=== PATIENT | male | born 1940 | race Caucasian/White ===

== ENCOUNTER 2019-05-19 10:19 | Outpatient (CLI) | payer MEDICARE, SELFPAY ==
--- NOTE | 2019-05-19 10:40 | XR_ITS ---
WS: [id number] Right foot, 3 views, 05/19/2019 Clinical Data: ulceration Comparison: None. Findings: No fractures or dislocations are seen. There is lateral subluxation of the second through fourth phal anges. Osteoarthritic change between the first cuneiform and base of the right first metatarsal is se en. There is a small Achilles spur and a large plantar spur. There are clips in the medial soft tissu e of the ankle from surgery.No periarticular demineralization or calcifications are seen. There is no evidence of osteomyelitis. XR/XR foot RT min 3V* [id number] Impression: 1. Lateral subluxation of the second through fourth toes. 2. Osteoarthritic change at the articulation between the base of the right firs t metatarsal and the first cuneiform.
== END 2019-05-19 10:20 | disposition home or self-care (01) ==
LOC: RAD 10:30
PROVIDERS: Family Provider Family Medicine; PCP Family Medicine; Visit Provider Podiatrist Foot & Ankle Surgery
DX: L97.512 Non-pressure chronic ulcer of other part of right foot with fat layer exposed (principal); M19.071 Primary osteoarthritis, right ankle and foot
CPT/HCPCS: 73630

== ENCOUNTER 2019-07-14 08:23 | Outpatient (CLI) | payer MEDICARE, SELFPAY ==
--- NOTE | 2019-07-14 08:45 | USCV_ITS ---
Taras Gonzalez Age: 78 Gender: M : 1940 Exam Date: 07/14/2019 08:51 Ordering Phys: Heber Salinas MD ([email or web address]) Technologist: DOUG PLATT Exam Location[place] [facility] [place] Indication: LEG PAIN Risk Factors: Previous Vascular Surgery: RIGHT LEFT BP: 157.0 / 91.00 BP: 150.0/ 78.00 0 0 Waveform Velocity (cm/s) Velocity (cm/s) Waveform Biphasic 72.9 Iliac Prox 93.1 Triphasic Biphasic 66.1 Iliac Mid 53.6 Triphasic Biphasic 65.3 Iliac Distal 67.3 Triphasic Biphasic 65.3 STEM SETTER 36.4 Triphasic Biphasic 43.3 SFA Prox 57.3 Triphasic Biphasic 48.5 SFA Mid 46.3 Monophasic Biphasic SFA Dist Monophasic 66.2 35.0 Biphasic 98.1 POP 17.9 Monophasic Monophasic 27.6 RADIOLOGY TRANSCRIPTIONIST N/A Monophasic 50.7 DPA 34.2 Monophasic 0.6 FREDY 0.5 FINDINGS RT DPA = 95 RT RADIOLOGY TRANSCRIPTIONIST 80 LT DPA = 80, LT RADIOLOGY TRANSCRIPTIONIST N/A Abnormal resting FREDY of 0.6 on the right side and 0.5 on the left side Mild to moderate diffuse plaques in the iliac and femoral arteries bilaterally CONCLUSIONS 1. Abnormal resting FREDY and Doppler waveforms consistent with severe peripheral arterial disease on the left side, possibly multisegmental with total occlusion of the posterior tibial artery . 2. Moderately severe peripheral artery disease on the right side possibly involving the popliteal and infrapopliteal vessels. No similar previous studies are available for comparison Dr Miley Siu MD [facility] (Electronically Signed) Final Date: 14 Jul 2019 19:35 S
== END 2019-07-14 08:24 | disposition home or self-care (01) ==
LOC: RAD 08:27
PROVIDERS: Family Provider Family Medicine; PCP Family Medicine; Visit Provider Internal Medicine Cardiovascular Disease
DX: M79.604 Pain in right leg (principal); M79.605 Pain in left leg; I73.9 Peripheral vascular disease, unspecified
CPT/HCPCS: 93925

== ENCOUNTER 2019-08-11 06:00 | Day surgery (SDC) | payer MEDICARE, SELFPAY ==
[2019-08-10 14:15] VITALS: BMI 34.8
[2019-08-11] VITALS (19 sets, daily range): BP systolic 148–204; BP diastolic 71–106; PULSE 65–83; RESP 7–26; TEMP 36.4–36.6; O2SAT 95–98
--- NOTE | 2019-08-11 | XACV_ITS ---
Wt: 117 kg BSA: 2.47 m2 Any Known Allergies: Iodine Gender: Male : 1940 Exam Type: Invasive Peripheral Vascular Procedure(s): Procedure Description: Peripheral Cath Diagnostic Procedure Procedure Description: Abdominal aortic angiography Procedure Description: Lower extremities' angiography Procedure Description: Peripheral vascular Intervention Procedure Description: PV Balloon Exam Priority: Routine Lower Extremity Diagnostic Findings Patient complains of bilateral lower extremity pain worse in the knee area. Noninvasive studies abnormal suggesting disease below both knees. Patient is Trinity grade I category 2; Mallorie stage II. On the right, the common iliac and external iliac are large tortuous vessels with no significant stenoses. Flow is sluggish. The internal iliac is patent. The common femoral artery is patent and essentially normal. Flow beyond this is very slow and pulsatile. The external iliac is extremely tortuous. The profunda femoris is diffusely diseased. The superficial femoral artery is large and calcified with no significant stenoses. Because of the tortuosity and difficulty seeing the more distal vessels a right coronary catheter was placed in the right SFA in order to visualize the distal vessels. The distal superficial femoral artery contains moderate diffuse disease. The proximal popliteal is heavily calcified and contains a 90% diffuse elongated stenosis. There is a knee prosthesis which obstructs the view. The popliteal artery at the joint appears essentially normal. Beyond this the popliteal is moderately diffusely diseased. The anterior tibial is patent but contains moderate to severe diffuse disease to the ankle. The tibioperoneal trunk is moderately diffusely diseased. The posterior tibial is occluded. The peroneal appears normal all the way to the ankle. On the left the common iliac, external iliac and common femoral are essentially normal but very tortuous similar to what was noted on the left. The internal iliac is patent with a 40% stenosis at the ostium. The profunda femoris is patent. The superficial femoral artery is patent until it arrives near the adductor canal and then it is completely occluded and heavily calcified. There is some reconstitution at the level of the popliteal from a vessel which emanates from the distal SFA. Once again a left knee prosthesis obstructs the view of the popliteal artery. In the area of the joint the vessel appears to be patent after it fills via collaterals. The remainder the vessel is moderately diffusely diseased. The anterior tibial is seen briefly but then is occluded. Tibioperoneal trunk is modestly diffusely diseased. The posterior tibial is occluded. The peroneal artery is moderately diffusely diseased but does appear to extend toward the ankle. All vessels are heavily calcified. Lower Extremity Interventional Findings The procedure was done from the left common femoral artery. Extremely difficult placement of sheaths and catheters due to the tortuosity of the proximal vessels especially the external iliacs. This limited placement of catheters, wires and balloons distally. Plain old balloon angioplasty followed by drug-eluting balloon angioplasty was performed on the popliteal artery with a reasonable angiographic result. Conclusions Severe stenosis of the right popliteal artery which underwent plain old balloon angioplasty followed by drug-eluting balloon angioplasty. One-vessel runoff below the right knee. Occluded distal left superficial femoral artery with one-vessel runoff below the left knee. Bilateral knee prostheses. Recommendations Medical therapy for now. Consider an attempt at intervention to the left SFA. Hemodynamic Data Phase:Rest AO : 135.0 mmHg / 75.0 mmHg ( 106.0 mmHg ) @ 1:54:00 AM 113.0 mmHg / 107.0 mmHg ( 98.0 mmHg ) @ 1:54:00 AM / ( 2.0 mmHg ) @ 1:57:00 AM Access Site Site: Left Femoral artery Sheath Size: 6 Fr Hemost... Method: Suture Hemost... Success: Successful Procedure Details Findings Procedure Consent Obtained. Admit Source: Out Patient. Pre-Procedure Time Out. Identified patient by full name and date of as verbalized by the patient/guarantor. Does the consent match the physician's order: Yes. Accurate & Complete Informed Consent: Yes. Inpatient/Outpatient History & Physical on Chart: Yes. If H&P is completed, is and addenduem needed: N/A; If yes, is the addendum complete: N/A. Visualize and Verify Site with Patient/Guarantor: N/A. Relevant Radiology Images available: N/A. Pre-op teaching completed and patient verbalized understanding. The risks, benefits, and alternatives of sedation and/or procedure were discussed by physician. The patient agrees to continue. Procedure started. Correct patient, site and procedure confirmed by cath team. Current diagnosis: PVD. PERRLA. Strong, equal hand electromechanical engineer bilaterally. Lungs clear x 5 lobes. IV Site on Arrival: 18 gauge in the left forearm. IV Fluids: 0.9% NaCl at KVO. 0 mL infused prior to landscaping and groundskeeping laborer. Pre Procedural Pulses: bilateral posterior tibial was Doppled. Pre Procedural Pulses: bilateral dorsalis pedis was Doppled. Pre Procedural Pulses: bilateral radial was 2+. Oxygen started at 3liters/min via nasal canula. bilateral groins was prepped with chloroprep then draped in the usual sterile fashion. Physician notified. Baseline sample Acquired. HR: 70 BPM. Equipment: 6F - Femoral. Cardiac Cath Pack. ACIST Manifold Kit Model BT 2000. Heparinized Saline (2 units/mL), 1000 mL bag. Physician arrived. Physician scrubbed in. Immediate Pre-Procedure Time Out. Correct Patient: Yes; Correct Procedure: Yes; Correct Site: Yes; Correct Patient Position: Yes; Correct Supplies: Yes; Dried Flammable Prep: Yes; Blood Products Available: N/A;. Lidocaine 1% infiltrated to the left groin. Arterial access obtained. A 5FrFr UF catheter in over wire. Abdominal aortogram performed in AP @ 10 mL/sec for a total of 30 mL. Glidewire inserted. UF catheter removed. A 5FrFr RIM catheter in over wire. Glidewire removed. Right external iliac selected and arteriogram with runoff performed @ 10 mL/sec for a total of 30 mL. Glidewire inserted and advanced down the right SFA. RIM catheter removed. Seeker inserted over the glidewire and placed in the right SFA. Wire advanced to the popliteal on the right side. Seeker removed. A CRD 6F JR4 100cm Diagnostic Catheter was advanced over the wire to the right SFA and used for Lower extremity arteriography. Glidewire removed. Right superficial femoral selected and arteriogram performed at 10 ml/sec for a total of 20 ml.. Glidewire inserted. JR 4 catheter removed. Sheath upsized to a 6 Fr. Inflation number : 1 A AB ARMADA 35 OTW [id number] was prepped and advanced across the Proximal Popliteal, Right , then inflated to 8 MARCOS for 1:02 seconds. Balloon out over the wire. Inflation number : 2 A LUTONIX 035 6.0mm x 100 mm was prepped and advanced across the Proximal Popliteal, Right , then inflated to 7 MARCOS for 1:01 seconds. Balloon out over the wire. Angiography performed through the sheath, of the right SFA at 10ml/sec for a total of 30 ml. JR 4 catheter inserted over the wire. Wire removed. JR 4 seated in the right SFA. Angiography performed of the right SFA performed at 10ml/sec of a total of 20 ml. Glidewire inserted. JR 4 removed. Sheath upsized to a 6 Fr. Left common femoral selected and arteriogram with runoff performed @ 10 mL/sec for a total of 30 mL. Physicain reviewed films and scrubbed out. A Suture was successful obtaining hemostatsis at the Left Femoral artery insertion site. Sheath(s) sutured into position with 2-0 silk and sterile 4x4's and Op-site applied over the site. No oozing or signs and symptoms of hematoma noted. Arterial sheath flushed and connected to tranducer and pressure bag with heparinized saline. Post Procedure: Pulses reassessed and unchanged. PERRLA. Strong, equal hand electromechanical engineer bilaterally. No VTE prophylaxis required. Medication's Wasted: Lidocaine 1% = 10 mL. Medication's Wasted: Heparin = 4000 Units. Total IV fluids: 60.7 mL. Fluoro: 11:02. Contrast type used: Omnipaque 300 mgI/mL, 500 mL bottle. [id number]. Post-op diagnosis: PAD. Complications: None. Estimated blood loss: 5mL-10mL. Procedure completed. Vital chart was stopped. Patient transferred by bed to 1st floor. Procedure Medications Start: 6:49 AM Stop: 6:49 AM Medication: Solu-Medrol (methylprednisolone) Amount: 125 mg Route: I.V. Start: 6:49 AM Stop: 6:49 AM Medication: Versed Amount: 1 mg Route: I.V. Start: 6:49 AM Stop: 6:49 AM Medication: Fentanyl Amount: 50 mcg Route: I.V. Start: 6:50 AM Stop: 6:50 AM Medication: Versed Amount: 1 mg Route: I.V. Start: 6:50 AM Stop: 6:50 AM Medication: Fentanyl Amount: 50 mcg Route: I.V. Start: 7:14 AM Stop: 7:14 AM Medication: Heparin Amount: 5000 units Route: I.V. Start: 7:40 AM Stop: 7:40 AM Medication: Plavix Amount: 300 mg Route: P.O. I, the attending physician, have reviewed and verified all procedure medications. Yes, all medications given per verbal order History/Risk Factors Hypertension: Yes Dyslipidemia: No Diabetic Therapy: Insulin Peripheral Arterial Disease (PAD): Yes Myocardial Infarction (MD): Yes Obesity: Yes Renal Disease: Yes Tobacco Use: Former Prior Interventions PCI: No CABG: Yes Valve Surgery: No Report Signatures Finalized by:Dr. Heber Salinas MD on 08/11/2019 8:54:20 AM
--- NOTE | 2019-08-11 06:25 | P.HP_ITS ---
Providers/Chief Complaint Admitting Physician: Brad Primary Care Provider: Martin Velez DO Chief Complaint: Bilateral leg pain History of Present Illness Taras Gonzalez is a 78 year old male who is being put in electively today for purposes of lower extremity angiography. He is a long-term patient who has coronary disease with prior myocardial infarction, bypass surgery and inte rvention. He has a number of other medical problems and risk factors for vascular disease to include hypertension, diabetes, history of DVT, pulmonary embolism and a [place] filter in place. I last saw him on 24 June when he came to see me earlier than expected. He was telling me about numbness and tingling in both legs. He has pain in his knees. The right leg is worse than the left leg. He gets pain on the sides of both knees and above the knees when he walks. It is relieved with rest. He can walk 50 yards before he has to stop due to the discomfort. He has had bilateral total knee replacements. He has been seeing podiatry for a number of problems. He is frustrated that he cannot get out and umanzor rabbits, squirrel and deer. He does not appear to be having any angina. He is anticoagulated for the underlying DVT history. He has chronic kidney disease. Noninvasive studies suggested peripheral arterial disease. The insurance company denied a CTA so he is being scheduled for conventional angiogram. Review of Systems General: Reports: 10 or more systems reviewed and unremarkable except in HPI and below Medications/Allergies Home Medications Medication Instructions Recorded Confirmed Last Taken Type aspirin 81 mg tablet,delayed 81 mg PO DAILY 05/12/19 08/10/19 Unknown History release metoprolol succinate 50 mg 50 mg PO DAILY 05/12/19 08/10/19 Unknown History tablet,extended release 24 hr oxycodone 10 mg tablet 10 mg PO PRN 05/12/19 08/07/19 Unknown History pantoprazole 40 mg tablet,delayed 40 mg PO DAILY 05/12/19 08/10/19 Unknown History release triamterene 37.5 1 cap PO DAILY 90 Days #90 cap 05/18/19 08/10/19 Unknown Rx mg-hydrochlorothiazide 25 mg capsule rivaroxaban 20 mg tablet 20 mg PO DAILY 90 Days #90 tab 08/03/19 08/10/19 Unknown Rx insulin NPH and regular human 100 unit SUBCUT BID 08/10/19 08/10/19 Unknown History [Novolin 70/30 U-100 Insulin] insulin glargine [Lantus U-100 100 unit SUBCUT BEDTIME 08/10/19 08/10/19 Unknown History Insulin] Allergies Allergy/AdvReac Type Severity Reaction Status Date / Time cimetidine [From Tagamet] Allergy ADR-Loss Verified 08/07/19 13:25 of Appetite omeprazole [From Prilosec] Allergy ADR-Loss Verified 08/07/19 13:25 of Appetite ranitidine [From Zantac] Allergy ADR-Loss Verified 08/07/19 13:25 of Appetite PFSH Acute PFSH: Medical History Anticoagulation adequate with anticoagulant therapy Eliquis Bilateral leg pain CAD (coronary artery disease) Chronic kidney disease (CKD) Diabetes mellitus DVT (deep venous thrombosis) Bimal filter in place Hypertension Myocardial infarction Pulmonary embolism TIA (transient ischemic attack) Surgical History History of open heart surgery Hx of total knee arthroplasty bilateral knees S/P CABG (coronary artery bypass graft) Family History Family/Other Cancer Heart disease Diabetes Denies family history of CAD (coronary artery disease) Clotting disorder Dementia Hyperlipidemia Psychiatric illness Chronic kidney disease (CKD) Suicide Anesthesia complication Bleeding disorder Family history of premature coronary artery disease Lung disease Hypertension Stroke Social History Smoking and tobacco status: former smoker Alcohol intake: never Current occupational status: retired Vitals/I&O/Wt Weight last 48 hrs Weight 257 lb Physical Exam Narrative: EXAM NARRATIVE: GENERAL: In general he looks and feels well HEENT: Exam within normal limits. NECK: Supple without jugular vein distention. The carotid upstroke is normal without bruits. BACK: Exam normal. LUNGS: Clear. HEART: Regular rate and rhythm. ABDOMEN: Benign without organomegaly or tenderness. EXTREMITIES: Trace edema bilaterally. Hammertoes. NEUROLOGIC: Exam normal. SKIN: Unremarkable. A&P Assessment and plan (1) Anticoagulation adequate with anticoagulant therapy: Status: Acute (2) Bilateral leg pain: Status: Acute (3) Hypertension: Status: Acute (4) Diabetes mellitus: Status: Acute (5) Chronic kidney disease (CKD): Status: Acute (6) Myocardial infarction: Status: Acute (7) S/P CABG (coronary artery bypass graft): Status: Acute (8) CAD (coronary artery disease): Status: Acute Additional A&P Information He will undergo lower extremity angiography. We will proceed with intervention as necessary. We will start with entry on the left since his right leg seems to be more problematic. Attestations Medical Necessity Statement*: Outpatient in a bed. Coding Level of Care Code New Pt Acute Industrial Technology Education Teacher for [facility] Fwd Patient Type New Medical Decision Making Moderate Complexity Diagnoses Anticoagulation adequate with anticoagulant therapy Z79.01 Bilateral leg pain M79.604; M79.605 Hypertension I10 Diabetes mellitus E11.9 Chronic kidney disease (CKD) N18.9 Myocardial infarction I21.9 S/P CABG (coronary artery bypass graft) Z95.1 CAD (coronary artery disease) I25.10
[2019-08-11 06:57] LABS: Basophils % 0.5 %; Eosinophils # 0.3 10^3/uL (0.0-0.8); Eosinophils % 4.2 %; Hematocrit 50.7 % (42.0-52.0); Hemoglobin 16.2 g/dL (11.7-16.6); Lymphocytes % 26.5 %; Mean Corpuscular Hemoglobin 27.8 pg (28.0-34.0); Mean Corpuscular Volume 87.1 fL (80-94); Mean Platelet Volume 10.9 fL (7.4-10.4); Monocytes # 0.8 10^3/uL (0.2-0.9); Monocytes % 10.2 %; Neutrophils # 4.2 10^3/uL (1.8-7.7); Neutrophils % 57.1 %; Nucleated Red Blood Cells % 0 %; Platelet Count 210 10^3/cmm (130-400); Red Blood Count 5.82 10^6/uL (4.1-5.3); Red Cell Distribution Width 16.6 % (12.1-15.1); White Blood Count 7.4 10^3/uL (4.0-10.0)
[2019-08-11 07:11] LABS: Anion Gap 18.7 (5-19); Blood Urea Nitrogen 22 mg/dL (8-23); Calcium 9.6 mg/dL (8.5-10.5); Carbon Dioxide 22 mmol/L (22-29); Chloride 101 mmol/L (98-107); Glucose 252 mg/dL (65-115); Osmolality Calculated 289 mOsm/kg (285-295); Potassium 4.7 mmol/L (3.5-5.1); Sodium 137 mmol/L (136-145)
--- NOTE | 2019-08-11 08:07 | PC.NURSE ---
PATIENT TO CSU ROOM 112-1 VIA STRETCHER WITH CCL STAFF ; PATIENT HAS LEFT GROIN ACCESS WITH PRESSURE BAG IN PLACE ; NO BLEEDING BRUISING OR HEMATOMA NOTED ; VSS ; PATIENT DENIES ANY COMPLAINTS AT THIS TIME ; DISTAL PULSES PRESENT
[2019-08-11] MEDS: metoprolol succinate ER (24 HR) 50 mg Tablet PO (09:08)
[2019-08-11] MEDS: aspirin 81 mg EC Tablet PO (09:08)
[2019-08-11] MEDS: pantoprazole DR 40 mg Tablet PO (09:08)
--- NOTE | 2019-08-11 11:15 | PC.CHAP ---
Pastoral Care Encounter/Spiritual Assessment Type of Contact [] Declined convex grinder visit [] Patient/Family/Request visit [] Outpatient visit [] Follow-up visit [] Physician referral [] Code/Alert [x] Routine visit [] Staff referral [] Actively dying [] Patient sleeping [] Family support [] [] Out of room [] Palliative care [] [x] Receiving care in room [] Pre-surgical visit [] Trauma [] Long length of stay [] ICU visit [] Other: Relational/Emotional Strength [x] Patient feels connected with others/family/visitors/staff [] Distress [] Loneliness/isolation [] Abandonment Spirituality of Patient [x] Person of Nasreen [] Attends Taoism of their Nasreen [x] Believes in Prayer [] Reads Bible or Jain materials [] There are Spiritual issues to be addressed Service Plumber Interventions [x] Prayer [x] Active listening [x] Non-anxious presence [x] Spiritual/emotional support [] Crisis/trauma care [x] Spiritual counseling [] Bereavement support [] Provided bereavement packet [] Provided Bible/devotional materials [] Provided toy/stuffed animal, coloring book to patient or family member [] Provided Communion [] Anointing/[place] [] Salvation [x] Completed spiritual assessment [] Other: Impact on Illness or Injury [] Angry [] Fearful [] Anxious [] Often cries [] Exhaustion [] Unable to work [] Unable to attend islam [] Unable to walk/stand [] Unable to read [] Unable to drive [] Unable to eat/drink [] Unable to sleep [] Unable to be with family [] Patient intubated [] Other: Summary bilateral leg pain, possitive attidude feeling better, looking forward to going tomorrow, has had tests feels good about recovery Time spent with patient 10 mins
--- NOTE | 2019-08-11 12:07 | PC.NURSE ---
PATIENT SHEATH WAS PULLED BEGINNING AT 1140 ; NO BLEEDING BRUISING OR HEMATOMA WAS NOTED AND PULSES REMAINED PRESENT DISTALLY ; VSS ; PATIENT TOLERATED 20 MIN PROCEDURE WELL
--- NOTE | 2019-08-11 13:22 | PC.NURSE ---
PATIENT RESTING QUIETLY IN BED ; PATIENT LEFT GROIN DRESSING C/D/I ; DISTAL PULSES PRESENT ; PATIENT DENIES ANY COMPLAINTS AT THIS TIME
--- NOTE | 2019-08-11 19:31 | PC.NURSE ---
Rounding: Patient resting in bed. Patient is alert and oriented. L groin site is clean dry and intact no hematoma noted. Patient denies any pain. call light within reach. Will continue to monitor.
[2019-08-11 20:42] LABS: Glucose Point of Care 482 mg/dL (70-110)
[2019-08-11] MEDS: insulin glargine 100 units/1 mL 100 UNIT SUBCUT (21:24)
[2019-08-12 00:02] VITALS: BP 144/76; PULSE 66; RESP 16; TEMP 36.7; O2SAT 96
[2019-08-12] MEDS: temazepam 15 mg Capsule PO (00:07)
[2019-08-12 04:00] VITALS: BP 150/91; PULSE 65; RESP 18; TEMP 36.4; O2SAT 95
[2019-08-12 04:42] LABS: Basophils % 0.2 %; Eosinophils % 0.2 %; Hematocrit 46.6 % (42.0-52.0); Lymphocytes # 1.5 10^3/uL (0.8-4.8); Lymphocytes % 11.2 %; Mean Corpuscular HGB Conc 32.2 g/dL (30.0-36.0); Mean Corpuscular Hemoglobin 27.4 pg (28.0-34.0); Mean Corpuscular Volume 85.2 fL (80-94); Monocytes # 0.9 10^3/uL (0.2-0.9); Monocytes % 6.9 %; Neutrophils # 10.7 10^3/uL (1.8-7.7); Neutrophils % 80.5 %; Nucleated Red Blood Cells % 0 %; Platelet Count 197 10^3/cmm (130-400); Red Blood Count 5.47 10^6/uL (4.1-5.3); Red Cell Distribution Width 15.8 % (12.1-15.1); White Blood Count 13.3 10^3/uL (4.0-10.0)
[2019-08-12 05:02] LABS: Anion Gap 19.5 (5-19); Blood Urea Nitrogen 26 mg/dL (8-23); Calcium 9.6 mg/dL (8.5-10.5); Carbon Dioxide 22 mmol/L (22-29); Chloride 94 mmol/L (98-107); Glucose 383 mg/dL (65-115); Osmolality Calculated 285 mOsm/kg (285-295); Potassium 4.5 mmol/L (3.5-5.1); Sodium 131 mmol/L (136-145)
--- NOTE | 2019-08-12 05:42 | PC.NURSE ---
End of shift: Patient has rested well this shift. Patient L groin is clean dry and intact. NO hematoma noted. Legs are warm to the touch good cap refill and good pulses. Patient denies any pain. Patient denies any complaints at this time, remains alert and oriented, and call light is within reach. Will continue to monitor.
[2019-08-12 06:24] LABS: Glucose Point of Care 346 mg/dL (70-110)
--- NOTE | 2019-08-12 06:31 | P.DS_ITS ---
Discharge Providers Date of Admission: 08/11/19 07:51 Date of Discharge: August 12, 2019 Attending Provider at Admission: Heber Salinas MD Attending Provider at Discharge: Heber Salinas MD Primary Care Provider: Martin Velez DO Diagnoses at Discharge Discharge Diagnosis (1) Anticoagulation adequate with anticoagulant therapy: Status: Acute Problem details: Eliquis (2) Bilateral leg pain: Status: Acute (3) Hypertension: Status: Acute (4) Diabetes mellitus: Status: Acute (5) Chronic kidney disease (CKD): Status: Acute (6) Myocardial infarction: Status: Acute (7) S/P CABG (coronary artery bypass graft): Status: Acute (8) CAD (coronary artery disease): Status: Acute (9) Peripheral arterial disease: Status: Acute (10) Claudication: Status: Acute (11) Status post percutaneous transluminal angioplasty (APPARATUS LINEMAN): Status: Acute Problem details: Right popliteal artery with drug-eluting balloon Reason for Visit Reason for Visit: Bilateral leg pain Brief History: Patient had bilateral lower extremity pain worse on the right. Noninvasive studies suggested severe disease at or below the knee. Hospital Course Hospital Course: Patient underwent lower extremity angiography via the left common femoral artery. He has extremely tortuous vessels especially in the pelvis. The external iliac arteries are tortuous. This made placement of sheaths, catheters and balloons difficult. There was a 90% stenosis of the popliteal artery just above a prosthetic joint. This underwent plain old balloon angioplasty followed by drug-eluting balloon angioplasty with a reasonable angiographic result. There is heavy calcification in the distal SFA and popliteal. Patient has bilateral knee prostheses which makes visualization of the arteries difficult. He has 1 vessel runoff below the right knee. On the left, the SFA is occluded distally with heavy calcification. There is collateral flow to the popliteal with one-vessel runoff below the left knee. His left leg is not as problematic with respect to pain. There were no complications with the entry site in the left common femoral artery. No bleeding, hematoma or other vascular anomalies. Patient is ambulating without difficulty the morning of discharge. Physical Exam Narrative: EXAM NARRATIVE: GENERAL: Awake alert and comfortable HEENT: Exam within normal limits. NECK: Supple without jugular vein distention. The carotid upstroke is normal without bruits. BACK: Exam normal. LUNGS: Clear. HEART: Regular rate and rhythm. ABDOMEN: Benign without organomegaly or tenderness. EXTREMITIES: No edema. Left groin entry site flat, dry without bleeding, hematoma or pulsatile mass. NEUROLOGIC: Exam normal. SKIN: Unremarkable. Discharge Data Data Completed and Pending: Labs from last 24 hours 08/12/19 08/12/19 08/12/19 06:16 04:17 04:17 WBC 13.3 H RBC 5.47 H Hgb 15.0 Hct 46.6 MCV 85.2 MCH 27.4 L MCHC 32.2 RDW 15.8 H Plt Count 197 MPV 11.0 H Neut % (Auto) 80.5 Lymph % (Auto) 11.2 [place] % (Auto) 6.9 Eos % (Auto) 0.2 Baso % (Auto) 0.2 Neut # (Auto) 10.7 H Lymph # (Auto) 1.5 [place] # (Auto) 0.9 Eos # (Auto) 0.0 Baso # (Auto) 0.0 Nucleated RBC % (a uto) 0 Nucleated RBCs # 0.0 Sodium 131 L Potassium 4.5 Chloride 94 L Carbon Dioxide 22 Anion Gap 19.5 H BUN 26 H Creatinine 1.2 Glucose 383 H POC Glucose 346 Calculated Osmolal ity 285 Calcium 9.6 08/11/19 08/11/19 08/11/19 20:38 06:25 06:25 WBC 7.4 RBC 5.82 H Hgb 16.2 Hct 50.7 MCV 87.1 MCH 27.8 L MCHC 32.0 RDW 16.6 H Plt Count 210 MPV 10.9 H Neut % (Auto) 57.1 Lymph % (Auto) 26.5 [place] % (Auto) 10.2 Eos % (Auto) 4.2 Baso % (Auto) 0.5 Neut # (Auto) 4.2 Lymph # (Auto) 2.0 [place] # (Auto) 0.8 Eos # (Auto) 0.3 Baso # (Auto) 0.0 Nucleated RBC % (a uto) 0 Nucleated RBCs # 0.0 Sodium 137 Potassium 4.7 Chloride 101 Carbon Dioxide 22 Anion Gap 18.7 BUN 22 Creatinine 1.0 Glucose 252 H POC Glucose 482 Calculated Osmolal ity 289 Calcium 9.6 Vitals: Last Vital Signs Temp 97.6 F 08/12/19 04:00 Pulse 65 08/12/19 04:00 Resp 18 06/17/20 04:00 BP 150/91 08/12/19 04:00 Pulse Ox 95 08/12/19 04:00 Discharge Plan Discharge Patient Disposition: Home, Self-Care Condition: Stable Prescriptions: Continued metoprolol succinate 50 mg tablet extended release 24 hr 50 mg PO DAILY RF: 0 oxycodone 10 mg tablet 10 mg PO PRN (Reason: Pain) RF: 0 pantoprazole 40 mg tablet,delayed release (DR/EC) 40 mg PO DAILY RF: 0 aspirin [Aspir-81] 81 mg tablet,delayed release (DR/EC) 81 mg PO DAILY RF: 0 triamterene-hydrochlorothiazid 37.5-25 mg capsule 1 cap PO DAILY 90 Days Qty: 90 RF: 3 Xarelto 20 mg tablet 20 mg PO DAILY 90 Days Qty: 90 RF: 3 Lantus U-100 Insulin 100 unit/mL Solution 100 unit SUBCUT BEDTIME RF: 0 Novolin 70/30 U-100 Insulin 100 unit/mL (70-30) Suspension 100 unit SUBCUT BID RF: 0 Discharge Orders: Discharge Order (Routine); Ordered 08/12/19 Ordered By: Heber Salinas Referrals: Deborah Lugo FNP [Nurse Practitioner] - 7-10 days (Check left groin entry site and chemistry panel. Evaluate left leg. If symptomatic schedule possible intervention on left leg.) Discharge Diet: Diabetic Discharge Activity: Limit activity as instructed Activity Restrictions/Additional Instructions: No change in medications. No lifting over 10 pounds for 2 days. May resume normal activity after this. Discharge Attestations Time Spent in Discharge Care*: less than 30 min Specific Discharge Activities: Specific discharge activities: educating patient Quality Metrics Clinical Quality Measures During this hospital stay, did patient experience: None Coding Level of Care Code Established Pt Acute Director [employer] [facility] Fwd Patient Type Established History Detailed Exam Detailed Medical Decision Making Moderate Complexity Diagnoses Anticoagulation adequate with anticoagulant therapy Z79.01 Bilateral leg pain M79.604; M79.605 Hypertension I10 Diabetes mellitus E11.9 Chronic kidney disease (CKD) N18.9 Myocardial infarction I21.9 S/P CABG (coronary artery bypass graft) Z95.1 CAD (coronary artery disease) I25.10 Peripheral arterial disease I73.9 Claudication I73.9 Status post percutaneous transluminal angioplasty (APPARATUS LINEMAN) Z98.62
--- NOTE | 2019-08-12 08:35 | PC.NURSE ---
PATIENT GIVEN DISCHARGE INSTRUCTIONS AND VERBALIZED UNDERSTANDING ; VSS ; LEFT GROIN SITE DRESSING C/D/I ; PATIENT DENIES ANY COMPLAINTS AT THIS TIME ; DISTAL PULSES PRESENT ; PATIENT TO EXIT VIA WHEELCHAIR WITH STAFF TO POV WITH NO ISSUES
[2019-08-12 09:12] VITALS: BP 150/91; PULSE 65; RESP 18; TEMP 36.4; O2SAT 95
== END 2019-08-12 08:35 | disposition home or self-care (01) ==
LOC: CCL 06:29 → CSU 08-12 06:30
PROVIDERS: PCP Family Medicine; Visit Provider Internal Medicine Cardiovascular Disease
DX: I77.1 Stricture of artery (principal); M79.605 Pain in left leg; M79.604 Pain in right leg; Z79.01 Long term (current) use of anticoagulants; E11.51 Type 2 diabetes mellitus with diabetic peripheral angiopathy without gangrene; E11.22 Type 2 diabetes mellitus with diabetic chronic kidney disease; I12.9 Hypertensive chronic kidney disease with stage 1 through stage 4 chronic kidney disease, or unspecified chronic kidney disease; N18.9 Chronic kidney disease, unspecified; I25.2 Old myocardial infarction; Z95.1 Presence of aortocoronary bypass graft; I25.10 Atherosclerotic heart disease of native coronary artery without angina pectoris; Z86.718 Personal history of other venous thrombosis and embolism; Z86.711 Personal history of pulmonary embolism; Z79.82 Long term (current) use of aspirin; Z79.4 Long term (current) use of insulin; Z86.73 Personal history of transient ischemic attack (TIA), and cerebral infarction without residual deficits; Z83.3 Family history of diabetes mellitus; Z82.49 Family history of ischemic heart disease and other diseases of the circulatory system; Z87.891 Personal history of nicotine dependence
CPT/HCPCS: 12345; 36415; 36416; 37224; 75625; 75716; 80048; 82962; 85025; 96372; C1725; C1769; C1887; C1894; C2623; J1644; J1815; J2001; J2250; J2930; J3010; J7030; Q0163; Q9967

== ENCOUNTER 2019-09-03 07:44 | Observation (INO) | payer MEDICARE, SELFPAY ==
[2019-09-02 09:47] VITALS: BMI 35.6
--- NOTE | 2019-09-02 10:28 | SUR.PREOP ---
During the patient's [facility] med rec, the patient states that he take Eliquis one tab at nighttime everyday and has been for a about a month now. He did not know the dosage. He stated that he was taking Xarelto for one month and called Dr. Velez for a refill and he was told to take Eliquis like you did before . Therefore, he takes one tab every night. This nurse called [facility] and they stated that he was prescribed Xarelto 07/09/19, #30. That script was picked up by the patient and it was no longer filled. Then in July, Dr. Velez prescribed Eliquis 5mg PO BID, which the patient picked up. Dr. Salinas's nurse, Teresa, was notified. The last dose of Eliquis the patient had was [place] 08/01/2019 at 2100. The pre-op nurse for tomorrow's procedure, Miquel Orellana RN, [employer] will be updated and clarifiy in more detail.
[2019-09-03] VITALS (63 sets, daily range): BP systolic 132–194; BP diastolic 61–122; PULSE 64–98; RESP 7–25; TEMP 36.8; O2SAT 97–100
[2019-09-03] MEDS: diphenhydrAMINE 50 mg Capsule PO (06:24)
[2019-09-03 06:43] LABS: Basophils % 0.3 %; Eosinophils # 0.4 10^3/uL (0.0-0.8); Eosinophils % 5.7 %; Hematocrit 47.7 % (42.0-52.0); Hemoglobin 15.2 g/dL (11.7-16.6); Lymphocytes # 1.7 10^3/uL (0.8-4.8); Lymphocytes % 24.6 %; Mean Corpuscular HGB Conc 31.9 g/dL (30.0-36.0); Mean Corpuscular Hemoglobin 27.7 pg (28.0-34.0); Mean Corpuscular Volume 86.9 fL (80-94); Mean Platelet Volume 10.4 fL (7.4-10.4); Monocytes # 0.6 10^3/uL (0.2-0.9); Monocytes % 8.5 %; Neutrophils # 4.05 10^3/uL (1.8-7.7); Neutrophils % 60.2 %; Nucleated Red Blood Cells % 0 %; Platelet Count 208 10^3/cmm (130-400); Red Blood Count 5.49 10^6/uL (4.1-5.3); Red Cell Distribution Width 15.8 % (12.1-15.1); White Blood Count 6.7 10^3/uL (4.0-10.0)
[2019-09-03 06:58] LABS: Anion Gap 15.1 (5-19); Blood Urea Nitrogen 23 mg/dL (8-23); Calcium 9.5 mg/dL (8.5-10.5); Carbon Dioxide 24 mmol/L (22-29); Chloride 100 mmol/L (98-107); Glucose 283 mg/dL (65-115); Osmolality Calculated 287 mOsm/kg (285-295); Potassium 4.1 mmol/L (3.5-5.1); Sodium 135 mmol/L (136-145)
--- NOTE | 2019-09-03 07:00 | XACV_ITS ---
Wt: 119 kg BSA: 2.50 m2 Any Known Allergies: Iodine Gender: Male : 1940 Exam Type: Invasive Peripheral Vascular Procedure(s): Procedure Description: Peripheral Cath Diagnostic Procedure Exam Priority: Routine Lower Extremity Diagnostic Findings This patient has known peripheral arterial disease with bilateral claudication. Several weeks ago he underwent lower abdominal angiography and bilateral lower extremity angiography. At that time he underwent angioplasty of his right distal superficial femoral artery and popliteal artery. The result was adequate. At that time he was found to have a complete occlusion of his distal left superficial femoral artery. He is brought back today for an attempted intervention. He is Rodriguez grade I, category 2; Mallorie stage II. Angiography of the left lower extremity reveals patent iliac arteries including the external iliac. Common femoral is patent. The profunda femoris is patent. The superficial femoral artery is patent until it reaches the distal segment. It is then completely occluded. Beyond this there is heavy calcification of the remainder of the vessel which extends into the popliteal. There are collateral vessels which arise proximal to the occlusion and fill the vessel at the level of the knee joint. The knee joint is prosthetic. One can see the distal popliteal filling via collaterals. I made an attempt for quite some time with 2 separate wires, seeker catheter and a rim catheter to cross the lesion. It is so heavily calcified I could not get a wire or catheter to pass through the lesion. Therefore the procedure was abandoned. I will talk to him about medical therapy versus a referral to a vascular surgeon. Access Site Site: Right Femoral artery Sheath Size: 6 Fr Hemost... Method: Suture Hemost... Success: Successful Procedure Details Findings Procedure Consent Obtained. Admit Source: Out Patient. Pre-Procedure Time Out. Identified patient by full name and date of as verbalized by the patient/guarantor. Does the consent match the physician's order: Yes. Accurate & Complete Informed Consent: Yes. Inpatient/Outpatient History & Physical on Chart: Yes. If H&P is completed, is and addenduem needed: N/A; If yes, is the addendum complete: N/A. Visualize and Verify Site with Patient/Guarantor: N/A. Relevant Radiology Images available: N/A Emergent; Informed Consent not obtained due to time critical life threat. Pre-op teaching completed and patient verbalized understanding. The risks, benefits, and alternatives of sedation and/or procedure were discussed by physician. The patient agrees to continue. Procedure started. Correct patient, site and procedure confirmed by cath team. PERRLA. Strong, equal hand makeup sales consultant bilaterally. Lungs clear x 5 lobes. IV Site on Arrival: 18 gauge in the left anticubital. Oxygen started at 2liters/min via nasal canula. bilateral groins was prepped with chloroprep then draped in the usual sterile fashion. Physician notified. Baseline sample Acquired. HR: 61 BPM. Physician arrived. Physician scrubbed in. Time out performed with cath team. Lidocaine 1% infiltrated to the right groin. Arterial access obtained with micropuncture set. A 5FrFr RIM catheter in over wire. Periodically checking pulse ox due to malfunction of set up. Left leg runoff 10mL/sec for a total of 30mL. sat: 95%. going in with glide wire through RIM. RIM out. sheath exchange. 6Fr Flexor sheath inserted. Trailblazer catheter inserted over the glide wire. glide wire out. viper wire inserted in the FSA. sat: 99%. viper wire out. glide wire inserted through seeker. seeker out. exchanging 6Fr long sheath for 6Fr short sheath. Sheath(s) sutured into position with 2-0 silk and sterile 4x4's and Op-site applied over the site. No oozing or signs and symptoms of hematoma noted. Post Procedure: Pulses reassessed and unchanged. PERRLA. Strong, equal hand makeup sales consultant bilaterally. No VTE prophylaxis required. Medication's Wasted: Lidocaine 1% = 10 mg. Medication's Wasted: Heparin = 1000 units. Medication's Wasted: Other = fentanyl 25 mg. Total IV fluids: 34.4 mL. Contrast type used: Visipaque 320 mgI/mL, 500 mL bottle. Contrast Material : Visipaque 38 ml. Post-op diagnosis: PAD. Complications: none. Estimated blood loss: 5mL-10mL. A Suture was successful obtaining hemostatsis at the Right Femoral artery insertion site. Procedure completed. Patient transferred by bed to 1st floor. Vital chart was stopped. Procedure Medications Start: 6:58 AM Stop: 6:58 AM Medication: Versed Amount: 1 mg Route: I.V. Start: 6:58 AM Stop: 6:58 AM Medication: Fentanyl Amount: 50 mcg Route: I.V. Start: 7:00 AM Stop: 7:00 AM Medication: Solu-Medrol (methylprednisolone) Amount: 125 mg Route: I.V. Start: 7:01 AM Stop: 7:01 AM Medication: Versed Amount: 1 mg Route: I.V. Start: 7:01 AM Stop: 7:01 AM Medication: Fentanyl Amount: 25 mcg Route: I.V. Start: 7:11 AM Stop: 7:11 AM Medication: Versed Amount: 1 mg Route: I.V. Start: 7:21 AM Stop: 7:21 AM Medication: Versed Amount: 1 mg Route: I.V. I, the attending physician, have reviewed and verified all procedure medications. Yes, all medications given per verbal order History/Risk Factors Hypertension: Yes Dyslipidemia: No Diabetic Therapy: Insulin Peripheral Arterial Disease (PAD): Yes Myocardial Infarction (TX): Yes Obesity: No Renal Disease: Yes Tobacco Use: Former Prior Interventions PCI: No CABG: Yes Valve Surgery: No Report Signatures Finalized by:Dr. Heber Salinas MD on 09/03/2019 7:54:25 AM
[2019-09-03] MEDS: sodium chloride 0.9% 1,000 ML 100 ML IV (07:45)
[2019-09-03] MEDS: hyDRALAzine 20 mg/mL INJ 1 mL 10 MG IVP ×2 (08:16→09:12)
[2019-09-03] MEDS: cloNIDine 0.1 mg Tablet PO (08:35)
[2019-09-03 09:34] LABS: Glucose Point of Care 265 mg/dL (70-110)
--- NOTE | 2019-09-03 09:58 | PC.CHAP ---
Pastoral Care Encounter/Spiritual Assessment Type of Contact [] Declined accounting system expert visit [] Patient/Family/Request visit [] Outpatient visit [] Follow-up visit [] Physician referral [] Code/Alert [x] Routine visit [] Staff referral [] Actively dying [] Patient sleeping [] Family support [] [] Out of room [] Palliative care [] [] Receiving care in room [] Pre-surgical visit [] Trauma [] Long length of stay [] ICU visit [] Other: Relational/Emotional Strength [x] Patient feels connected with others/family/visitors/staff [] Distress [] Loneliness/isolation [] Abandonment Spirituality of Patient [x] Person of Nasreen [x] Attends Baptism of their Nasreen [x] Believes in Prayer [x] Reads Bible or Confucianist materials [] There are Spiritual issues to be addressed Manager Lighting Interventions [x] Prayer [x] Active listening [x] Non-anxious presence [x] Spiritual/emotional support [] Crisis/trauma care [] Spiritual counseling [] Bereavement support [] Provided bereavement packet [] Provided Bible/devotional materials [] Provided toy/stuffed animal, coloring book to patient or family member [] Provided Communion [] Anointing/Cade [] Salvation [x] Completed spiritual assessment [] Other: Impact on Illness or Injury [] Angry [] Fearful [] Anxious [] Often cries [] Exhaustion [] Unable to work [] Unable to attend catholic [] Unable to walk/stand [] Unable to read [] Unable to drive [] Unable to eat/drink [] Unable to sleep [] Unable to be with family [] Patient intubated [x] Other: Summary Patient is for the past 60 years, 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 Time spent with patient 10 minutes
[2019-09-03 11:07] LABS: Glucose Point of Care 454 mg/dL (70-110)
--- NOTE | 2019-09-03 11:09 | PC.NURSE ---
Sheath Pull Sheath pulled at 0803. Dr. Salinas notified of patient BP at 0815. Physician gave telephone order for 10 mg Hydralazine IVP, RBVO. Hemostasis not achieved after holding pressure to site for 20 minutes, BP remained elevated even after Hydralazine administration. Dr. Salinas notified at 0830. Physician gave telephone order for 0.1 mg clonidine PO ONCE and for nurse to continue to hold pressure until hemostasis was achieved at site, RBVO. Clonidine was administered. BP continually reassessed. No significant change was noted in BP. Hemostasis achieved after holding direct pressure for 50 minutes, dressing applied. Dr. Salinas was contacted at 0850 via telephone. Physician stated he would come to bedside for further orders. Physician arrived to bedside at 0905. Physician assessed site, no hematoma formation present. Physician gave verbal order for 10 mg Hydralazine IVP ONCE. Nurse to continue to monitor.
--- NOTE | 2019-09-03 15:15 | PC.NURSE ---
Ambulation Patient ambulated in hallway. Patient tolerated well. Incision asymptomatic.
--- NOTE | 2019-09-03 16:07 | PC.NURSE ---
Discharge instructions given per the physician's orders. Patient verbalized understanding of the information and did not have any further questions. Patient verbalized understanding and compliance to activity restrictions. Medications were delivered to bedside. Patient waiting in ER for ride.
== END 2019-09-03 16:10 | disposition home or self-care (01) ==
LOC: CSU 11:22
PROVIDERS: Admitting Provider Internal Medicine Cardiovascular Disease; PCP Family Medicine; Visit Provider Internal Medicine Cardiovascular Disease
DX: I73.9 Peripheral vascular disease, unspecified (principal); I12.9 Hypertensive chronic kidney disease with stage 1 through stage 4 chronic kidney disease, or unspecified chronic kidney disease; E11.22 Type 2 diabetes mellitus with diabetic chronic kidney disease; N18.9 Chronic kidney disease, unspecified; I25.10 Atherosclerotic heart disease of native coronary artery without angina pectoris; I25.2 Old myocardial infarction; Z95.1 Presence of aortocoronary bypass graft; Z79.4 Long term (current) use of insulin; Z79.01 Long term (current) use of anticoagulants; Z87.891 Personal history of nicotine dependence
CPT/HCPCS: 36416; 75710; 80048; 82962; 85025; 96360; 96361; 96372; C1769; C1887; C1894; G0378; J0360; J1644; J1815; J2250; J2930; J3010; J7030; Q0163; Q9967

== ENCOUNTER → 2019-09-10 11:10 | Outpatient (BNVA) | payer MEDICARE, SELFPAY | PROVIDERS: PCP Family Medicine; Visit Provider Nurse Practitioner Family | DX: Z98.62 Peripheral vascular angioplasty status (principal) | CPT/HCPCS: 80048 ==

== ENCOUNTER 2019-11-04 11:52 | Inpatient (IN) | payer MEDICARE, SELFPAY ==
[2019-11-04] VITALS (7 sets, daily range): BP systolic 84–147; BP diastolic 48–84; PULSE 90–107; RESP 18–26; TEMP 36.5–36.8; O2SAT 92–98; BMI 35.2
--- NOTE | 2019-11-04 13:20 | W.ED.FEVER ---
HPI - Fever General: Chief Complaint: Fever Stated Complaint: FEVER,NAUSEA Time Seen by Provider: 11/04/19 12:27 History of Present Illness: HPI Narrative: 78-year-old male comes in complaining of nausea and just shaking all over he had temp this morning up to 101.7 at home the nurse had originally written and is triage note that he had leg pain however I talked to him he says he does not have any new leg pain in fact is not as bad as it has been in the past he still has some leg discomfort but it is about at its baseline. He denies chest pain or abdominal pain denies dysuria he had some nausea and one episode of dry heaving this morning but denies any diarrhea no hematochezia melena hematemesis or coffee-ground emesis he does have some prostate issues he has difficult time emptying his bladder but is not had any dysuria urgency or frequency or hematuria. MD elicited complaint: fever Pertinent past history: diabetes Measured temperature: 101.7 F Exacerbating factors: nothing Relieving factors: nothing Associated symptoms: Reports chills and vomiting; Deny abdominal pain, flank pain, chest pain, confusion, cough, diarrhea, dysuria, extremity pain, headache(s), myalgias, nasal congestion, nausea, night sweats, rash, rhinorrhea, short of breath, sinus pain, stiffness, sore throat or weight loss Treatments prior to arrival fever: none Review of Systems Const: Reports: chills; Denies: night sweats ENMT: Denies: nasal congestion or sinus pain Card: Denies: chest pain GI: Reports: vomiting; Denies: abdominal pain, nausea or diarrhea : Denies: flank pain or dysuria Musc: Denies: extremity pain Neuro: Denies: headache(s) or confusion PFS ED PFSH: Medical History Anticoagulation adequate with anticoagulant therapy Eliquis Bilateral leg pain CAD (coronary artery disease) Chronic kidney disease (CKD) Claudication Diabetes mellitus DVT (deep venous thrombosis) [place] filter in place Hypertension Myocardial infarction Peripheral arterial disease Pulmonary embolism TIA (transient ischemic attack) Surgical History History of open heart surgery Hx of total knee arthroplasty bilateral knees S/P CABG (coronary artery bypass graft) Status post percutaneous transluminal angioplasty (INDUSTRIAL INSULATOR) Right popliteal artery with drug-eluting balloon Family History Family/Other Cancer Heart disease Diabetes Denies family history of CAD (coronary artery disease) Clotting disorder Dementia Hyperlipidemia Psychiatric illness Chronic kidney disease (CKD) Suicide Anesthesia complication Bleeding disorder Family history of premature coronary artery disease Lung disease Hypertension Stroke Social History Smoking and tobacco status: former smoker Second hand smoke exposure: No Smoking risk assessment/counseling performed?: No Alcohol intake: never Desire information about alcohol rehabilitation?: No Counseling given: No Desire information about substance/drug rehabilitation?: No Counseling given: No Adopted: No Caregiver/support person: No Lives independently: Yes Household members: spouse Housing: House Marital status: Number of children: 2 service: No Current occupational status: retired History of recent travel: No Current gender identity: Male Physical Exam Const: COMMON NORMALS: no acute distress GENERAL APPEARANCE: cooperative and comfortable ORIENTATION/CONSCIOUSNESS: Yes awake, Yes oriented to person, Yes oriented to place and Yes oriented to time HENMT: COMMON NORMALS: normocephalic, atraumatic, hearing grossly normal bilaterally, external ears normal, EAC's normal, TM's normal bilaterally, moist oral mucous membranes and oropharynx normal HEAD & SCALP: normocephalic and atraumatic EXTERNAL EAR: Yes external ears normal EXTERNAL AUDITORY CANAL: EAC's normal TYMPANIC MEMBRANE: TM's normal bilaterally Eye: COMMON NORMALS: Equal, round and reactive pupils present, EOMs intact bilaterally, conjunctivae normal and no scleral icterus CONJUNCTIVA: Yes conjunctivae normal PUPIL: Yes Equal, round and reactive pupils present Neck/C-Spine: COMMON NORMALS: full ROM, no lymphadenopathy, supple and no JVD Lymph: LYMPHATIC: no lymphadenopathy noted and no lymphedema noted Resp: COMMON NORMALS: normal respiratory effort, No retractions, No use of accessory muscles and clear to auscultation bilaterally AUSCULTATION: clear to auscultation bilaterally Cardio: COMMON NORMALS: no JVD, regular rate, regular rhythm and No murmurs present (Cardio) RATE: regular rate RHYTHM: regular rhythm GI: COMMON NORMALS: Soft to palpation and No hepatosplenomegaly present AUSCULTATION: Yes normoactive bowel sounds PALPATION: Yes Soft to palpation, No Tenderness to palpation present (GI), No Guarding due to palpation present (GI) and Yes No hepatosplenomegaly present Extremity: COMMON NORMALS: no calf tenderness and no pedal edema NARRATIVE EXTREMITY EXAM: Patient has some corn pads on his toes for hammertoes no open wounds no sign of infections no redness erythema no full-thickness ulcerations Neuro: SENSORIUM/ORIENTATION: Yes oriented to person, Yes oriented to place and Yes oriented to time Skin: COMMON NORMALS: no rashes or lesions noted GENERAL SKIN EXAM: no rashes or lesions noted Course Vital Signs: Vital signs: Vital Signs Temperature 97.7 F 11/06/19 08:00 Pulse Rate 80 11/06/19 08:00 Respiratory Rate 18 11/06/19 08:00 Blood Pressure 155/90 11/06/19 08:00 Pulse Oximetry 94 11/06/19 08:00 MDM - Fever MDM Narrative: Medical decision making narrative: Admit for sepsis start antibiotics discussed with hospitalist will also scan for urinary retention Dr. Estrada will be admitting Lab Data: Labs: Lab Results 11/04/19 11/04/19 11/04/19 Range/Units 13:42 13:44 13:44 WBC 17.8 H (4.0-10.0) 10^3/ uL RBC 5.79 H (4.1-5.3) 10^6/u L Hgb 16.3 (11.7-16.6) g/dL Hct 51.3 (42.0-52.0) % MCV 88.6 (80-94) fL MCH 28.2 (28.0-34.0) pg MCHC 31.8 (30.0-36.0) g/dL RDW 14.3 (12.1-15.1) % Plt Count 194 (130-400) 10^3/c mm MPV 10.3 (7.4-10.4) fL Neut % (Auto) 89.6 % Lymph % (Auto) 2.6 % Garland % (Auto) 7.0 % Eos % (Auto) 0.1 % Baso % (Auto) 0.3 % Neut # (Auto) 15.91 H (1.8-7.7) 10^3/u L Lymph # (Auto) 0.5 L (0.8-4.8) 10^3/u L Garland # (Auto) 1.2 H (0.2-0.9) 10^3/u L Eos # (Auto) 0.0 (0.0-0.8) 10^3/u L Baso # (Auto) 0.1 (0.0-0.1) 10^3/u L Nucleated RBC % (a uto) 0 % Nucleated RBCs # 0.0 /100WBC ESR (0-10) mm/hr Sodium 136 (136-145) mmol/L Potassium 3.9 (3.5-5.1) mmol/L Chloride 99 (98-107) mmol/L Carbon Dioxide 22 (22-29) mmol/L Anion Gap 18.9 (5-19) BUN 19 (8-23) mg/dL Creatinine 1.3 H (0.7-1.2) mg/dL GFR Calculation Not Reportable Glucose 227 H (65-115) mg/dL Calculated Osmolal ity 286 (285-295) mOsm/k g Lactic Acid (0.5-2.2) mmol/L Lactic Acid (Sepsi s) (0.5-2.2) mmol/L Calcium 9.1 (8.5-10.5) mg/dL Total Bilirubin 0.7 (0.15-1.2) mg/dL AST 36 (0-40) U/L ALT 44 H (0-41) U/L Alkaline Phosphata se 68 (40-130) IU/L Creatine Kinase 144 (39-308) U/L C-Reactive Protein (0.0-4.9) mg/L Total Protein 7.2 (6.6-8.7) g/dL Albumin 4.1 (3.5-5.2) g/dL Globulin 3.1 (1.3-4.6) g/dL Lipase 11 L (13-60) U/L Urine Color Yellow (Yellow) Urine Appearance Sl cloudy A (CLEAR) Urine pH 5 (5-7) Ur Specific Gravit y 1.020 (1.005-1.030) Urine Protein 1+ H (Negative) Urine Glucose (UA) Norm (Normal) Urine Ketones Negative (Negative) Urine Blood Neg (Negative) Urine Nitrate Positive H (Negative) Urine Bilirubin Neg (NEGATIVE) Urine Urobilinogen Neg (Negative) mg/dL Ur Leukocyte Tamera ase Negative (Negative) Urine RBC 0-4 H (0-2) /hpf Urine WBC 5-10 H (0-5) /hpf Ur Squamous Epith Cells 0-4 H (0-5) Amorphous Sediment Not Reportable Urine Bacteria Trace (NONE) Urine Mucus Trace SARS-CoV-2 Ag (Rap id) (Negative) 11/04/19 11/04/19 11/04/19 Range/Units 13:44 13:44 13:44 WBC (4.0-10.0) 10^3/ uL RBC (4.1-5.3) 10^6/u L Hgb (11.7-16.6) g/dL Hct (42.0-52.0) % MCV (80-94) fL MCH (28.0-34.0) pg MCHC (30.0-36.0) g/dL RDW (12.1-15.1) % Plt Count (130-400) 10^3/c mm MPV (7.4-10.4) fL Neut % (Auto) % Lymph % (Auto) % Garland % (Auto) % Eos % (Auto) % Baso % (Auto) % Neut # (Auto) (1.8-7.7) 10^3/u L Lymph # (Auto) (0.8-4.8) 10^3/u L Garland # (Auto) (0.2-0.9) 10^3/u L Eos # (Auto) (0.0-0.8) 10^3/u L Baso # (Auto) (0.0-0.1) 10^3/u L Nucleated RBC % (a uto) % Nucleated RBCs # /100WBC ESR 2 (0-10) mm/hr Sodium (136-145) mmol/L Potassium (3.5-5.1) mmol/L Chloride (98-107) mmol/L Carbon Dioxide (22-29) mmol/L Anion Gap (5-19) BUN (8-23) mg/dL Creatinine (0.7-1.2) mg/dL GFR Calculation Glucose (65-115) mg/dL Calculated Osmolal ity (285-295) mOsm/k g Lactic Acid 3.7 H (0.5-2.2) mmol/L Lactic Acid (Sepsi s) (0.5-2.2) mmol/L Calcium (8.5-10.5) mg/dL Total Bilirubin (0.15-1.2) mg/dL AST (0-40) U/L ALT (0-41) U/L Alkaline Phosphata se (40-130) IU/L Creatine Kinase (39-308) U/L C-Reactive Protein 9.4 H (0.0-4.9) mg/L Total Protein (6.6-8.7) g/dL Albumin (3.5-5.2) g/dL Globulin (1.3-4.6) g/dL Lipase (13-60) U/L Urine Color (Yellow) Urine Appearance (CLEAR) Urine pH (5-7) Ur Specific Gravit y (1.005-1.030) Urine Protein (Negative) Urine Glucose (UA) (Normal) Urine Ketones (Negative) Urine Blood (Negative) Urine Nitrate (Negative) Urine Bilirubin (NEGATIVE) Urine Urobilinogen (Negative) mg/dL Ur Leukocyte Tamera ase (Negative) Urine RBC (0-2) /hpf Urine WBC (0-5) /hpf Ur Squamous Epith Cells (0-5) Amorphous Sediment Urine Bacteria (NONE) Urine Mucus SARS-CoV-2 Ag (Rap id) (Negative) 11/04/19 11/04/19 Range/Units 14:40 16:56 WBC (4.0-10.0) 10^3/ uL RBC (4.1-5.3) 10^6/u L Hgb (11.7-16.6) g/dL Hct (42.0-52.0) % MCV (80-94) fL MCH (28.0-34.0) pg MCHC (30.0-36.0) g/dL RDW (12.1-15.1) % Plt Count (130-400) 10^3/c mm MPV (7.4-10.4) fL Neut % (Auto) % Lymph % (Auto) % Garland % (Auto) % Eos % (Auto) % Baso % (Auto) % Neut # (Auto) (1.8-7.7) 10^3/u L Lymph # (Auto) (0.8-4.8) 10^3/u L Garland # (Auto) (0.2-0.9) 10^3/u L Eos # (Auto) (0.0-0.8) 10^3/u L Baso # (Auto) (0.0-0.1) 10^3/u L Nucleated RBC % (a uto) % Nucleated RBCs # /100WBC ESR (0-10) mm/hr Sodium (136-145) mmol/L Potassium (3.5-5.1) mmol/L Chloride (98-107) mmol/L Carbon Dioxide (22-29) mmol/L Anion Gap (5-19) BUN (8-23) mg/dL Creatinine (0.7-1.2) mg/dL GFR Calculation Glucose (65-115) mg/dL Calculated Osmolal ity (285-295) mOsm/k g Lactic Acid (0.5-2.2) mmol/L Lactic Acid (Sepsi s) 4.3 H* (0.5-2.2) mmol/L Calcium (8.5-10.5) mg/dL Total Bilirubin (0.15-1.2) mg/dL AST (0-40) U/L ALT (0-41) U/L Alkaline Phosphata se (40-130) IU/L Creatine Kinase (39-308) U/L C-Reactive Protein (0.0-4.9) mg/L Total Protein (6.6-8.7) g/dL Albumin (3.5-5.2) g/dL Globulin (1.3-4.6) g/dL Lipase (13-60) U/L Urine Color (Yellow) Urine Appearance (CLEAR) Urine pH (5-7) Ur Specific Gravit y (1.005-1.030) Urine Protein (Negative) Urine Glucose (UA) (Normal) Urine Ketones (Negative) Urine Blood (Negative) Urine Nitrate (Negative) Urine Bilirubin (NEGATIVE) Urine Urobilinogen (Negative) mg/dL Ur Leukocyte Tamera ase (Negative) Urine RBC (0-2) /hpf Urine WBC (0-5) /hpf Ur Squamous Epith Cells (0-5) Amorphous Sediment Urine Bacteria (NONE) Urine Mucus SARS-CoV-2 Ag (Rap id) Negative (Negative) Discharge Plan Discharge Patient Disposition: Admitted As Inpatient Admit Provider: Ney Estrada Clinical Impression: Sepsis, Complicated UTI (urinary tract infection), Diabetes mellitus, Acute kidney injury superimposed on chronic kidney disease Condition: Stable Interventions: ED Discharge Assessment Last Done: 11/04/19 18:47 ED Charges Last Done: 11/04/19 18:47 Discharge Date/Time: 11/04/19 19:40 Coding Level of Care Code ED Middleware Systems Architect for Chg Fwd Exam Comprehensive
--- NOTE | 2019-11-04 13:32 | XRR_ITS ---
PROCEDURE INFORMATION: Exam: XR Chest, 1 View Exam date and time: 11/04/2019 1:57 PM Age: 78 years old Clinical indication: Cough and dyspnea and fever; Prior surgery; Surgery type: Cabg, stents; Additional info: Dyspnea/cough/fever, n/v, shaking TECHNIQUE: Imaging protocol: XR of the chest Views: 1 view. COMPARISON: CT chest wo con [id number] 09/17/2018 2:01 PM FINDINGS: Lungs: The lung volumes are low. No acute pneumonia or edema. Pleural space: Unremarkable. No pleural effusion. No pneumothorax. Heart/Mediastinum: Unremarkable. No cardiomegaly. Bones/joints: There has been a sternotomy. XR/XR chest 1V portable [id number] IMPRESSION: There are no acute concerning abnormalities.
[2019-11-04 13:54] LABS: Basophils # 0.1 10^3/uL (0.0-0.1); Basophils % 0.3 %; Eosinophils % 0.1 %; Hematocrit 51.3 % (42.0-52.0); Hemoglobin 16.3 g/dL (11.7-16.6); Lymphocytes # 0.5 10^3/uL (0.8-4.8); Lymphocytes % 2.6 %; Mean Corpuscular HGB Conc 31.8 g/dL (30.0-36.0); Mean Corpuscular Hemoglobin 28.2 pg (28.0-34.0); Mean Corpuscular Volume 88.6 fL (80-94); Mean Platelet Volume 10.3 fL (7.4-10.4); Monocytes # 1.2 10^3/uL (0.2-0.9); Neutrophils # 15.91 10^3/uL (1.8-7.7); Neutrophils % 89.6 %; Nucleated Red Blood Cells % 0 %; Platelet Count 194 10^3/cmm (130-400); Red Blood Count 5.79 10^6/uL (4.1-5.3); Red Cell Distribution Width 14.3 % (12.1-15.1); White Blood Count 17.8 10^3/uL (4.0-10.0)
[2019-11-04] MEDS: sodium chloride 0.9% 500 ML 999 ML IV (14:02)
[2019-11-04 14:10] LABS: Alanine Aminotransferase 44 U/L (0-41); Albumin Level 4.1 g/dL (3.5-5.2); Alkaline Phosphatase 68 IU/L (40-130); Anion Gap 18.9 (5-19); Aspartate Amino Transferase 36 U/L (0-40); Blood Urea Nitrogen 19 mg/dL (8-23); Calcium 9.1 mg/dL (8.5-10.5); Carbon Dioxide 22 mmol/L (22-29); Chloride 99 mmol/L (98-107); Creatine Phosphokinase 144 U/L (39-308); Globulin 3.1 g/dL (1.3-4.6); Glucose 227 mg/dL (65-115); Lipase 11 U/L (13-60); Osmolality Calculated 286 mOsm/kg (285-295); Potassium 3.9 mmol/L (3.5-5.1); Sodium 136 mmol/L (136-145); Total Bilirubin 0.7 mg/dL (0.15-1.2); Total Protein 7.2 g/dL (6.6-8.7)
[2019-11-04 14:10] LABS: Add Urine Microscopic? YES; Bilirubin Urine Neg (NEGATIVE); Blood Urine Neg (Negative); Glucose Urine UA Norm (Normal); Ketones Urine Negative (Negative); Leukocyte Esterase Urine Negative (Negative); Nitrate Urine Positive (Negative); Protein Urine 1+ (Negative); Urine Color Yellow (Yellow); Urobilinogen Urine Neg (Negative); pH Urine 5 (5-7)
[2019-11-04 14:26] LABS: Bacteria Urine TRACE; Mucus Urine TRACE; RBC Urine 0-4 /hpf (0-2); Squamous Epithelial Cell Urine 0-4 (0-5)
[2019-11-04 14:27] LABS: Add Urine Culture? Yes
[2019-11-04] MEDS: cefTRIAXone 2,000 MG in sodium chloride 0.9% (plus) 50 ML 100 MG IV (14:49)
[2019-11-04 16:15] LABS: Lactic Sepsis W/Reflex 3.7 mmol/L (0.5-2.2)
[2019-11-04 16:32] LABS: SARS Covid-2 Antigen Negative (Negative)
[2019-11-04 17:43] LABS: Reflex Lactate Order REFLEX LACTIC ORDERD
[2019-11-04 17:57] LABS: Lactic Acid level (Lactate) 4.3 mmol/L (0.5-2.2)
--- NOTE | 2019-11-04 18:23 | CTR_ITS ---
PROCEDURE INFORMATION: Exam: CT Abdomen And Pelvis Without Contrast Exam date and time: 11/04/2019 6:50 PM Age: 78 years old Clinical indication: Abdominal pain; Prior surgery; Additional info: Sepsis, microscopic hematuria TECHNIQUE: Imaging protocol: Computed tomography of the abdomen and pelvis without contrast. Radiation optimization: All CT scans at this facility use at least one of these dose optimization techniques: automated exposure control; mA and/or kV adjustment per patient size (includes targeted exams where dose is matched to clinical indication); or iterative reconstruction. COMPARISON: No relevant prior studies available. RADIATION DOSE METRICS: Total DLP (mGy-cm): 2100.36 FINDINGS: Liver: Findings consistent with fatty infiltration of the liver are identified. Gallbladder and bile ducts: Normal. No calcified stones. No ductal dilation. Pancreas: Normal. No ductal dilation. Spleen: Normal. No splenomegaly. Adrenals: Normal. No mass. Kidneys and ureters: Normal. No hydronephrosis. Stomach and bowel: Unremarkable. No obstruction. No mucosal thickening. Appendix: The appendix is visualized and appears normal. Intraperitoneal space: Unremarkable. No free air. No significant fluid collection. Vasculature: There is an IVC filter. Lymph nodes: Unremarkable. No enlarged lymph nodes. Bladder: Unremarkable as visualized. Reproductive: Unremarkable as visualized. Bones/joints: Degenerative change is identified in the spine. There is no evidence for acute fracture or malalignment. Soft tissues: There is fat in the bilateral inguinal canal. CT/CT kidney stone [id number] IMPRESSION: There are no acute concerning abnormalities. Radiation Dose CTDIVOL = (mGy): DLP = 2100.36 (mGy-cm)
--- NOTE | 2019-11-04 18:24 | P.HP_ITS ---
Providers/Chief Complaint Primary Care Provider: Martin Velez DO Chief Complaint: FEVER,NAUSEA History of Present Illness Taras Gonzalez is a 78 year pleasant gentleman with history of CAD, DM 2, DVT with [place] filter in place, on chronic anticoagulation, CKD, HTN, TIA, PAD was brought to emergency department for evaluation after shaking chills this morning, fever 101.7, in ER noted leukocytosis of 17.8, lactic acidosis of 3.7 minimal acute kidney injury with creatinine 1.3. Apart from this has been at baseline state of health. Overnight has been having burning with urination. Reports long-standing issues with initiation of urination and 3-5 episodes of nycturia being normal for him. Does not take any prostate medication. UA with positive nitrite, 5-10 WBC, 0-4 RBC, trace bacteria, cloudy. Rapid COVID 19 testing negative. Chest x-ray without acute abnormality. On review of systems he otherwise notes some chronic knee pain, has had bilateral knee replacements. Did have arthroscopic knee procedure on the right says with a balloon procedure 6 weeks ago. There is been no redness, no swelling or worse pain than usual in the knee. Had a hammertoe procedure as well also 6 weeks ago, but denies any worse foot pain, swelling or redness. It appears he may be referring to balloon angioplasty done in July 2019 on right popliteal artery with stent placement. He has bad peripheral arterial disease, worse on the left side, and second procedure was attempted in August 2019 for attempted angioplasty of left SFA due to complete occlusion. During the procedure common femoral and profunda femoris arteries were found patent. As were iliac arteries. SFA occluded in the distal segment with heavy calcification beyond. Distal popliteal artery was noted filling via collaterals. The occlusion could not be crossed and so procedure was discontinued. Minimal patchy area of mild erythema on lateral left ankle. Otherwise no pale, blue or purple discoloration of toes, no more significant pain in his feet than usual. Does have some chronic rash on bilateral anterior tibia, irregularly shaped, patchy areas of erythema and scaly skin. He denies any shortness of breath, cough, no headache, no muscle aches, had some dry heaving earlier today, no vomiting, no diarrhea no blood in stool or dark black stools. No new skin rashes. Review of Systems Const: Reports: fever(s), chills and malaise; Denies: body aches Eyes: Denies: change in vision or eye redness ENMT: Denies: throat pain, oral sores or ear or mastoid pain Card: Denies: chest pain, edema, pre-syncope or dyspnea on exertion Resp: Denies: dyspnea, productive cough, change in phlegm color or hemoptysis GI: Reports: other (Episode of dry heaving. Appetite is the same as usual, although for a long while not as good in the evenings as used to be.); Denies: abdominal pain, nausea, vomiting, diarrhea, constipation, hematochezia or melena : Reports: difficulty urinating (Especially at night), difficulty starting urination and nocturia; Denies: flank pain, urinary frequency or hematuria Musc: Denies: back pain, joint swelling or joint redness Skin/Breast: Reports: rash (Chronic rash on bilateral shins. New small irregularly-shaped red patch on lateral left ankle.); Denies: new lesions Neuro: Denies: headache(s), numbness in extremities, weakness in extremities, dizziness, confusion or seizure-like activity Endo: Denies: polyuria or polydipsia Monroe/Lymph: Denies: easy bleeding or purpura All/Imm: Denies: urticaria, throat swelling or tongue swelling Medications/Allergies Home Medications Medication Instructions Recorded Confirmed Last Taken Type aspirin 81 mg tablet,delayed 81 mg PO DAILY 05/12/19 11/04/19 11/03/19 History release metoprolol succinate 50 mg 50 mg PO DAILY 05/12/19 11/04/19 11/03/19 History tablet,extended release 24 hr pantoprazole 40 mg tablet,delayed 40 mg PO DAILY 05/12/19 11/04/19 11/03/19 History release triamterene 37.5 1 cap PO DAILY 90 Days #90 cap 05/18/19 11/04/19 11/03/19 Rx mg-hydrochlorothiazide 25 mg capsule Lantus U-100 Insulin 100 unit SUBCUT BEDTIME 08/10/19 11/04/19 11/03/19 History Eliquis 5 mg PO BID 09/02/19 11/04/19 11/03/19 History cilostazol 50 mg PO BID #60 tab 09/03/19 11/04/19 11/03/19 Rx benzonatate 200 mg PO TID 11/04/19 11/04/19 11/03/19 History guaifenesin [Mucus Relief] 200 mg PO Q4H PRN 11/04/19 11/04/19 11/03/19 History insulin lispro protamin-lispro 110 unit SUBCUT DAILY 11/04/19 11/04/19 11/03/19 History [Humalog Mix 75-25(U-100)Insuln] Allergies Allergy/AdvReac Type Severity Reaction Status Date / Time Iodinated Contrast Media Allergy Severe Itching Verified 11/04/19 12:05 cimetidine [From Tagamet] Allergy ADR-Loss Verified 11/04/19 12:05 of Appetite omeprazole [From Prilosec] Allergy ADR-Loss Verified 11/04/19 12:05 of Appetite Penicillins Allergy ALGY-Rash Verified 11/04/19 12:05 ranitidine [From Zantac] Allergy ADR-Loss Verified 11/04/19 12:05 of Appetite PFSH Acute PFSH: Medical History Anticoagulation adequate with anticoagulant therapy Eliquis Bilateral leg pain CAD (coronary artery disease) Chronic kidney disease (CKD) Claudication Diabetes mellitus DVT (deep venous thrombosis) Bimal filter in place Hypertension Myocardial infarction Peripheral arterial disease Pulmonary embolism TIA (transient ischemic attack) Surgical History History of open heart surgery Hx of total knee arthroplasty bilateral knees S/P CABG (coronary artery bypass graft) 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) Right popliteal artery with drug-eluting balloon Family History Family/Other Cancer Heart disease Diabetes Denies family history of CAD (coronary artery disease) Clotting disorder Dementia Hyperlipidemia Psychiatric illness Chronic kidney disease (CKD) Suicide Anesthesia complication Bleeding disorder Family history of premature coronary artery disease Lung disease Hypertension Stroke Social History Smoking and tobacco status: former smoker Second hand smoke exposure: No Smoking risk assessment/counseling performed?: No Alcohol intake: never Desire information about alcohol rehabilitation?: No Counseling given: No Desire information about substance/drug rehabilitation?: No Counseling given: No Adopted: No Caregiver/support person: No Lives independently: Yes Household members: spouse Housing: House Marital status: Number of children: 2 service: No Current occupational status: retired History of recent travel: No Current gender identity: Male Vitals/I&O/Wt Last Vital Signs Temp 98.3 F 11/04/19 11:56 Pulse 90 11/04/19 17:10 Resp 23 H 11/04/19 16:00 BP 135/84 11/04/19 17:10 Pulse Ox 94 11/04/19 16:00 11/04/19 11/04/19 11/04/19 06:59 14:59 22:59 Intake Total 500 / 500 50 / 550 Balance 500 / 500 50 / 550 Weight last 48 hrs Weight 117.934 kg Physical Exam Const: COMMON NORMALS: no acute distress, patient oriented x3 and alert GENERAL APPEARANCE: cooperative and comfortable NUTRITIONAL APPEARANCE: overweight ORIENTATION/CONSCIOUSNESS: Yes awake HENMT: COMMON NORMALS: oropharynx normal Neck/C-Spine: COMMON NORMALS: no JVD Resp: COMMON NORMALS: normal respiratory effort and clear to auscultation bilaterally AUSCULTATION: clear to auscultation bilaterally Cardio: COMMON NORMALS: no JVD, regular rhythm, S1 normal heart sound present, S2 normal heart sound present and No murmurs present (Cardio) RHYTHM: regular rhythm HEART SOUNDS: S1 normal heart sound present and S2 normal heart sound present GI: COMMON NORMALS: Normal to inspection, nondistended, normoactive bowel sounds present, Soft to palpation and non-tender PALPATION: Yes Soft to palpation Extremity: COMMON NORMALS: no joint enlargement and no pedal edema OTHER: Few noted calluses on toes bilaterally, more so on the left. No open wounds or drainage. Skin tone appears similar to rest of the body. Warm to touch. No cyanosis. He has no trouble moving his feet. Neuro: COMMON NORMALS: patient oriented x3 and moves all extremities Skin: COMMON NORMALS: no rashes or lesions noted GENERAL SKIN EXAM: erythema (Chronic irregular elongated patches of erythema, scaling skin, extending along bilateral shins anteriorly, few areas of induration. Per patient this is not new. No discharge. Few similar in appearance papular lesions on lower legs which appear to be unroofed with tiny ulceration in the center, without any drainage, about a centimeter or less in size, without any fluctuance to suggest underlying abscess.) OTHER: There is also a small irregularly-shaped reddish patch on lateral left ankle which he says is more new. It is flat, no underlying swelling or fluctuance, nontender, no oozing or drainage. Few areas of dry scaly skin. Lower legs are warm to touch. Data : 11/04/19 13:44 11/04/19 13:44 Micro: Microbiology 11/04/19 13:48 Blood Culture - Preliminary Blood SPECIMEN COLLECTED 11/04/19 13:44 Blood Culture - Preliminary Blood SPECIMEN COLLECTED A&P Assessment and plan (1) Sepsis: Sepsis with leukocytosis 17.8, fever at home one 101.7, sinus tachycardia pulse 105. Does have lactic acidosis up to 4.3, this is also in spite of resuscitation with fluid although I was not notified of this value. Blood pressure appears to be stable, currently 147/77. Mild acute kidney injury 1.3. Possibly severe sepsis. Discussed with him concern for possible origin of sepsis, including complicated UTI, will assess with CT renal stone as he does have minimal microscopic hematuria, but also has been having urinary hesitancy for a long time, nocturia, and so may have BPH/retention. Was noted to be urinating in ER. Requested for bladder scan to be done. He requested to hold off on Peralta unless it is absolutely necessary. I requested that the CT renal stone be done on the way before he arrived in his room. Discussed with nighttime physician regarding pending study. Given possible severe sepsis at this time we will switch antibiotics to Primaxin, also empirically will cover with vancomycin. Does have some chronic appearing lesions on anterior shins, but there is some warmth to touch, although per him these are chronic and have been there for years. Cannot exclude that there is not some degree of superimposed cellulitis there. These lesions do somewhat appear like possibly pyoderma gangrenosum. Will check ESR, CRP. For now avoid steroids given concern for severe sepsis. Work-up potential signs of infection. COVID-19 antigen was negative. Chest x-ray without acute abnormality. He does have significant peripheral arterial disease, but at this time do not see cyanosis, or signs of acute hypoperfusion of his extremity. This will need to be monitored closely. With vascular disease, acute abdominal ischemia was considered as well, although suspicion for this is lower. He has absolutely no abdominal pain, abdomen is soft, his appetite has been as usual (though overall in the evenings has been eating somewhat less), and he has been denying any pain postprandially. He is allergic to contrast media as well. For now given lower suspicion for this assessment will be done as above with n oncontrast CT, but continue to monitor for any change in condition with low threshold for additional evaluation. All concerns discussed with patient, and he is agreeable with assessment and plan to proceed forward. Status: Acute (2) Complicated UTI (urinary tract infection): Received Rocephin in ER. Additional assessment for any urinary retention. Antibiotics as above. Follow-up urine culture. Status: Acute (3) Urinary hesitancy: Reports longstanding history of urinary hesitancy, nocturia. Never been diagnosed with BPH previously. Not on any prostate medications. Discussed with him we will start on Flomax (if blood pressure remains stable), and if any signs of urinary retention may temporarily require urinary catheter placement. He is reluctant to have the catheter placed, but on additional discussion and concerns that if has urine retention this may be detrimental to his recovery including severe infection and kidney injury, bladder rupture, and other complications, he is agreeable for placement of catheter as a last resort. Status: Acute (4) Acute kidney injury superimposed on chronic kidney disease: Minimal acute kidney injury on chronic any disease, creatinine up to 1.3. Old triamterene HCTZ for now. Monitor renal function. Status: Acute (5) Lactic acidosis: As above. His diabetes, although I do not see that he has metformin. Status: Acute Additional A&P Information History of VTE: Continue Eliquis CAD, PAD: Continue aspirin metoprolol, although for now will decrease dose. Not sure why he is not on statin. Appears has a number of allergies, will need to confirm with a swab as well. Diabetes: Sliding scale insulin for now. Chronic rash on lower extremities: He attributes this to diabetes. HTN History of TIA GERD: Continue PPI. Says pantoprazole is the only 1 he is not allergic to. Attestations Medical Necessity Statement*: Admission of over 2 midnights continued for assessment management of sepsis, complicated UTI. Coding Level of Care Code Acute Field Mechanical Meter Tester for [facility] Fwd Exam Comprehensive Diagnoses Sepsis A41.9 Complicated UTI (urinary tract infection) N39.0 Urinary hesitancy R39.11 Acute kidney injury superimposed on chronic kidney disease N17.9; N18.9 Lactic acidosis E87.2
--- NOTE | 2019-11-04 19:11 | PC.NURSE ---
Test Engineer [employer] searched for bladder scanner, unable to find, patient will be taken to CT prior to arriving on floor
[2019-11-04 19:20] LABS: C Reactive Protein 9.4 mg/L (0.0-4.9)
[2019-11-04 19:51] LABS: Erythrocyte Sedimentation Rate 2 mm/hr (0-10)
[2019-11-04 21:03] LABS: Glucose Point of Care 283 mg/dL (70-110)
[2019-11-04] MEDS: insulin glargine 100 units/1 mL 10 UNIT SUBCUT (21:38)
[2019-11-05] VITALS: BP 137/76; PULSE 74; RESP 18; TEMP 36.4; O2SAT 92
[2019-11-05 04:00] VITALS: BP 103/55; PULSE 75; RESP 18; TEMP 36.5; O2SAT 93
[2019-11-05 05:16] LABS: Basophils # 0.1 10^3/uL (0.0-0.1); Basophils % 0.3 %; Eosinophils # 0.1 10^3/uL (0.0-0.8); Eosinophils % 0.3 %; Hematocrit 44.3 % (42.0-52.0); Hemoglobin 14.3 g/dL (11.7-16.6); Lymphocytes # 1.4 10^3/uL (0.8-4.8); Lymphocytes % 8.9 %; Mean Corpuscular HGB Conc 32.3 g/dL (30.0-36.0); Mean Corpuscular Hemoglobin 28.4 pg (28.0-34.0); Mean Corpuscular Volume 87.9 fL (80-94); Monocytes # 1.2 10^3/uL (0.2-0.9); Monocytes % 7.3 %; Neutrophils # 13.36 10^3/uL (1.8-7.7); Neutrophils % 82.9 %; Nucleated Red Blood Cells % 0 %; Platelet Count 165 10^3/cmm (130-400); Red Blood Count 5.04 10^6/uL (4.1-5.3); Red Cell Distribution Width 14.6 % (12.1-15.1); White Blood Count 16.1 10^3/uL (4.0-10.0)
[2019-11-05 05:44] VITALS: BMI 35.2
[2019-11-05 05:47] LABS: Alanine Aminotransferase 33 U/L (0-41); Albumin Level 3.6 g/dL (3.5-5.2); Alkaline Phosphatase 53 IU/L (40-130); Aspartate Amino Transferase 24 U/L (0-40); Blood Urea Nitrogen 20 mg/dL (8-23); Calcium 8.1 mg/dL (8.5-10.5); Carbon Dioxide 23 mmol/L (22-29); Chloride 101 mmol/L (98-107); Creatinine Clr Calc Pharmacy 72.1938; Glucose 243 mg/dL (65-115); Osmolality Calculated 283 mOsm/kg (285-295); Sodium 134 mmol/L (136-145); Total Bilirubin 0.6 mg/dL (0.15-1.2); Total Protein 6.6 g/dL (6.6-8.7)
[2019-11-05 06:33] LABS: Glucose Point of Care 209 mg/dL (70-110)
[2019-11-05 07:40] VITALS: BP 143/78; PULSE 77; RESP 16; TEMP 36.9; O2SAT 95
[2019-11-05] MEDS: cilostazol 100 mg Tablet 50 MG PO ×2 (08:00→17:18)
[2019-11-05] MEDS: metoprolol tartrate 25 mg Tablet 12.5 MG PO ×2 (08:01→17:19)
[2019-11-05] MEDS: pantoprazole DR 40 mg Tablet PO (08:01)
[2019-11-05] MEDS: apixaban 5 mg Tablet PO ×2 (08:02→17:19)
[2019-11-05] MEDS: aspirin 81 mg EC Tablet PO (08:02)
[2019-11-05 10:51] LABS: Glucose Point of Care 281 mg/dL (70-110)
[2019-11-05 11:15] VITALS: BP 144/74; PULSE 72; RESP 16; TEMP 36.4; O2SAT 96
--- NOTE | 2019-11-05 13:17 | P.PN_ITS ---
Subjective Subjective: Interval history: Reports that today he is feeling much better. Denies any headache, dizziness, any nausea or vomiting, no further dry heaving, no abdominal pain. Denies any diarrhea. Says that he is urinating better today as well. No pain in either leg. 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 Vitals/I&O/Wt Last Vital Signs Temp 97.5 F L 11/05/19 11:15 Pulse 72 11/05/19 11:15 Resp 16 11/05/19 11:15 BP 144/74 11/05/19 11:15 Pulse Ox 96 11/05/19 11:15 11/04/19 11/05/19 11/05/19 22:59 06:59 14:59 Intake Total 3688.02 / 4188.02 840 / 840 Output Total 300 / 300 790 / 1090 550 / 550 Balance 3388.02 / 3888.02 -790 / 3098.02 290 / 290 Weight last 48 hrs Weight 117.934 kg Weight 117.934 kg Physical Exam Const: COMMON NORMALS: no acute distress, patient oriented x3 and alert GE NERAL APPEARANCE: cooperative and comfortable NUTRITIONAL APPEARANCE: overweight ORIENTATION/CONSCIOUSNESS: Yes awake HENMT: COMMON NORMALS: oropharynx normal Neck/C-Spine: COMMON NORMALS: no JVD Resp: COMMON NORMALS: normal respiratory effort and clear to auscultation bilaterally AUSCULTATION: clear to auscultation bilaterally Cardio: COMMON NORMALS: no JVD, regular rhythm, S1 normal heart sound present, S2 normal heart sound present and No murmurs present (Cardio) RHYTHM: regular rhythm HEART SOUNDS: S1 normal heart sound present and S2 normal heart sound present GI: COMMON NORMALS: Normal to inspection, nondistended, normoactive bowel sounds present, Soft to palpation and non-tender PALPATION: Yes Soft to palpation Extremity: COMMON NORMALS: no joint enlargement and no pedal edema OTHER: Few noted minimal calluses on toes bilaterally, more so on the left. No open wounds or drainage. Skin tone appears similar to rest of the body. Warm to touch and appear perfused bilaterally. No cyanosis. He has no trouble moving his feet. I do notice that his left extremity above the ankle and below the kn ee appears somewhat more erythematous across the anterolateral surfaces of the tavares. Today there is more apparent difference compared to the right side. It is warm to touch. Although he also does state that his left side is always a little bit more red appearing. Neuro: COMMON NORMALS: patient oriented x3 and moves all extremities SENSORIUM/ORIENTATION: Yes alert Skin: GENERAL SKIN EXAM: erythema (Chronic irregular elongated patches of erythema, scaling skin, extending along bilateral shins anteriorly, few areas of induration. Per patient this is not new. No discharge. Few similar in appearance papular lesions on lower legs which appear to be unroofed with tiny ulceration in the center, without any drainage, about a centimeter or less in size, without any fluctuance to suggest underlying abscess.) OTHER: Small irregularly-shaped reddish patch on lateral left ankle which he says is more new. Today is less apparent. It is flat, no underlying swelling or fluctuance, nontender, no oozing or drainage. Few areas of dry scaly skin. Lower legs are warm to touch. Data : 11/05/19 05:05 11/05/19 05:05 Micro: Microbiology 11/04/19 13:42 Urine Culture - Preliminary Urine,Clean Catch 11/04/19 13:48 Blood Culture - Preliminary Blood SPECIMEN COLLECTED 11/04/19 13:44 Blood Culture - Preliminary Blood SPECIMEN COLLECTED A&P Assessment and plan (1) Sepsis: Sepsis appears to be resolving. Leukocytosis improved down to 16.1. Fever resolved. Tachycardia resolved. Subjectively he is feeling much better. Blood pressures initially soft, have remained stable. Sepsis suspected to complicated urinary tract infection. Although appears she also may be having cellulitis of left lower extremity above the ankle and below the knee as there is today more apparent erythema of that area compared to the right. He does says that the area is chronically more erythematous, but is also feeling warm to touch, and so there is possible cellulitis of left lower extremity. CT abdomen pelvis unremarkable. He does say he is urinating better today. He is still on minimal dose metoprolol, so does not appear at baseline blood pressure. Once blood pressure allows start Flomax. Continue Primaxin, vancomycin. Follow-up cultures. So far urine culture without growth. Recheck lactic acid. Otherwise tavares lesions do somewhat appear like possibly pyoderma gangrenosum, but without any worsening today, and ESR and CRP are not impressive, and per discussion with him there is been no changes in the chronic lesions recently. There is no tenderness on superficial palpation. He is improved today without steroid. Not likely that they are the cause of his symptoms. COVID-19 antigen was negative. Chest x-ray without acute abnormality. He does have significant peripheral arterial disease, but at this time do not see cyanosis, or signs of acute hypoperfusion of his extremity. This will need to be monitored closely. With vascular disease, acute abdominal ischemia was considered as well, although suspicion for this is lower. He has absolutely no abdominal pain, abdomen is soft, his appetite has been as usual (though overall in the evenings has been eating somewhat less), and he has been denying any pain postprandially. He is allergic to contrast media as well. All concerns discussed with patient, and he is agreeable with assessment and plan to continue hospitalization and IV antibiotics. Status: Acute (2) Complicated UTI (urinary tract infection): As above. If blood pressure remains stable, and Flomax. Follow-up urine culture. CT abdomen pelvis unremarkable. No signs of severe urinary bladder distention or prostatitis. Should follow-up with urology in office regarding chronic difficulties with urinary stream, nocturia. Status: Acute (3) Urinary hesitancy: As above. Status: Acute (4) Acute kidney injury superimposed on chronic kidney disease: Improved. Creatinine appears back to baseline. Hold triamterene HCTZ for now. Monitor renal function. Status: Acute (5) Lactic acidosis: As above. His diabetes, although I do not see that he has metformin. Status: Acute Additional A&P Information History of VTE: Continue Eliquis CAD, PAD: Continue aspirin metoprolol, although for now will decrease dose. Not sure why he is not on statin. Appears has a number of allergies, will need to confirm whether is allergic to statin, or if there is another reason. Diabetes: Sliding scale insulin for now. Chronic rash on bilateral anterior shins: He attributes this to diabetes. Follow-up with PCP. Consider referral to dermatology. HTN History of TIA GERD: Continue PPI. Says pantoprazole is the only 1 he is not allergic to. Attestations Medical Necessity Statement*: Continue admission for assessment of management of improving sepsis, complicated UTI, cellulitis. Coding Level of Care Code Acute Bilingual Patient Support Caseworker for [facility] Fwd Diagnoses Sepsis A41.9 Complicated UTI (urinary tract infection) N39.0 Urinary hesitancy R39.11 Acute kidney injury superimposed on chronic kidney disease N17.9; N18.9 Lactic acidosis E87.2
[2019-11-05 15:26] VITALS: BP 143/73; PULSE 71; RESP 17; TEMP 36.4; O2SAT 96
[2019-11-05 17:05] LABS: Glucose Point of Care 303 mg/dL (70-110)
[2019-11-05 20:00] VITALS: BP 146/75; PULSE 74; RESP 17; TEMP 36.7; O2SAT 95
[2019-11-05 20:52] LABS: Glucose Point of Care 327 mg/dL (70-110)
[2019-11-05] MEDS: insulin glargine 100 units/1 mL 10 UNIT SUBCUT (21:19)
[2019-11-06] VITALS: BP 156/83; PULSE 118; RESP 19; TEMP 36.9; O2SAT 92
[2019-11-06 04:00] VITALS: BP 161/81; PULSE 90; RESP 17; TEMP 36.7; O2SAT 94
[2019-11-06 05:32] LABS: Basophils % 0.3 %; Eosinophils # 0.3 10^3/uL (0.0-0.8); Eosinophils % 2.7 %; Hematocrit 43.7 % (42.0-52.0); Hemoglobin 13.8 g/dL (11.7-16.6); Lymphocytes # 1.5 10^3/uL (0.8-4.8); Lymphocytes % 12.9 %; Mean Corpuscular HGB Conc 31.6 g/dL (30.0-36.0); Mean Corpuscular Hemoglobin 28.2 pg (28.0-34.0); Mean Corpuscular Volume 89.4 fL (80-94); Mean Platelet Volume 10.7 fL (7.4-10.4); Monocytes # 0.8 10^3/uL (0.2-0.9); Monocytes % 7.3 %; Neutrophils % 76.4 %; Nucleated Red Blood Cells % 0 %; Platelet Count 195 10^3/cmm (130-400); Red Blood Count 4.89 10^6/uL (4.1-5.3); Red Cell Distribution Width 14.5 % (12.1-15.1); White Blood Count 11.3 10^3/uL (4.0-10.0)
[2019-11-06 05:53] LABS: Lactate (Lactic Acid level) 1.7 mmol/L (0.5-2.2)
[2019-11-06 05:57] LABS: Alanine Aminotransferase 24 U/L (0-41); Albumin Level 3.3 g/dL (3.5-5.2); Alkaline Phosphatase 69 IU/L (40-130); Anion Gap 15.1 (5-19); Aspartate Amino Transferase 19 U/L (0-40); Blood Urea Nitrogen 20 mg/dL (8-23); Calcium 8.8 mg/dL (8.5-10.5); Carbon Dioxide 23 mmol/L (22-29); Chloride 101 mmol/L (98-107); Globulin 3.5 g/dL (1.3-4.6); Glucose 325 mg/dL (65-115); Osmolality Calculated 289 mOsm/kg (285-295); Potassium 4.1 mmol/L (3.5-5.1); Sodium 135 mmol/L (136-145); Total Bilirubin 0.4 mg/dL (0.15-1.2); Total Protein 6.8 g/dL (6.6-8.7)
[2019-11-06 07:14] LABS: Glucose Point of Care 279 mg/dL (70-110)
[2019-11-06 08:00] VITALS: BP 155/90; PULSE 80; RESP 18; TEMP 36.5; O2SAT 94
[2019-11-06 08:24] LABS: Vancomycin Trough 5.2 ug/mL (10-15)
[2019-11-06] MEDS: aspirin 81 mg EC Tablet PO (08:30)
[2019-11-06] MEDS: metoprolol tartrate 25 mg Tablet 12.5 MG PO (08:31)
[2019-11-06] MEDS: pantoprazole DR 40 mg Tablet PO (08:32)
[2019-11-06] MEDS: apixaban 5 mg Tablet PO (08:32)
[2019-11-06] MEDS: cilostazol 100 mg Tablet 50 MG PO (08:32)
[2019-11-06 10:49] LABS: Glucose Point of Care 383 mg/dL (70-110)
[2019-11-06 11:15] VITALS: BP 158/82; PULSE 88; RESP 18; TEMP 36.6; O2SAT 95
--- NOTE | 2019-11-06 11:16 | PM.DCS ---
Discharge Providers Date of Admission: 11/04/19 17:25 Date of Discharge: November 06, 2019 Attending Provider at Admission: Ney Estrada Attending Provider at Discharge: Ney Estrada Primary Care Provider: Martin Velez DO Diagnoses at Discharge Discharge Diagnosis (1) Sepsis: Status: Acute (2) Complicated UTI (urinary tract infection): Status: Acute (3) Urinary hesitancy: Status: Acute (4) Acute kidney injury superimposed on chronic kidney disease: Status: Acute (5) Lactic acidosis: Status: Acute Reason for Visit Reason for Visit: FEVER,NAUSEA Hospital Course Hospital Course: Pleasant 78-year-old gentleman with history of CAD, DM 2, history of DVT, with Eagar filter, chronic anticoagulation, CKD, HTN, TIA, PAD, reported chronic urinary hesitancy, nocturia was admitted after fever at home, malaise, nausea dry heaving, found to be in severe sepsis on presentation, with leukocytosis 17.8, fever at home one 1.7, with sinus tachycardia noted 105. Lactic acid on presentation went as high as 4.3 despite fluid resuscitation. Was treated empirically with Zosyn due to suspected urinary tract infection based on UA. Urinalysis unfortunately has not been revealing subsequently. He does have pretty bad peripheral arterial disease as well for which she has been following with interventional cardiology, most recently undergoing procedures with cholangioplasty and stenting in the right popliteal artery by Dr. Adams, subsequently attempt to reopen SFA and left side which is chronically occluded, but was unsuccessful back in August. Noted to have chronic rashes extending along bilateral shins which she says have been there for several years. The left leg especially anteriorly has been appearing more erythematous, and so there is also possible cellulitis perhaps contributing to his sepsis. CT kidney stone protocol was performed without finding of any acute abnormalities. His condition significantly improved with treatment with Primaxin and vancomycin. Severe sepsis has resolved. His leukocytosis is been improving and is near normal. He subjectively is feeling on her percent better, and has been requesting to return home. Of note 1 out of 4 bottles of blood culture is growing gram-positive cocci. He remains afebrile. There is no signs of embolic disease. At this time this is suspected contamination, but discussed with him if this were true infection this would definitely warrant additional evaluation and treatment, and so as he is wanting to return home, final results of the blood culture will need to be followed up, and he is aware that if there is further growth, may need additional elevation, or may be called to come back to the hospital. He will complete a course of Bactrim on discharge empirically for suspected UTI, as well as for possible cellulitis. Please follow-up his renal function in office. Due to chronic rashes along bilateral tibiae in the setting of diabetes she is referred for follow-up with dermatology. Due to longstanding symptoms of urinary hesitancy, nocturia he is started on Flomax and referred for nonurgent follow-up with urology. He should continue follow-up with cardiology with regards to severe peripheral arterial disease. Physical Exam Const: COMMON NORMALS: no acute distress, patient oriented x3 and alert GENERAL APPEARANCE: cooperative and comfortable NUTRITIONAL APPEARANCE: overweight ORIENTATION/CONSCIOUSNESS: Yes awake OTHER: Pleasant, conversant, awake, alert, comfortable, in good spirits. HENMT: COMMON NORMALS: oropharynx normal Neck/C-Spine: COMMON NORMALS: no JVD Resp: COMMON NORMALS: normal respiratory effort and clear to auscultation bilaterally AUSCULTATION: clear to auscultation bilaterally Cardio: COMMON NORMALS: no JVD, regular rhythm, S1 normal heart sound present, S2 normal heart sound present and No murmurs present (Cardio) RHYTHM: regular rhythm HEART SOUNDS: S1 normal heart sound present and S2 normal heart sound present GI: COMMON NORMALS: Normal to inspection, nondistended, normoactive bowel sounds present, Soft to palpation and non-tender PALPATION: Yes Soft to palpation Extremity: COMMON NORMALS: no joint enlargement and no pedal edema OTHER: Few noted minimal calluses on toes bilaterally, more so on the left no open ulcerations. No open wounds or drainage. Skin tone appears similar to rest of the body. Warm to touch and appear perfused bilaterally. No cyanosis. He has no trouble moving his feet. I do notice that his left extremity above the ankle and below the knee appears somewhat more erythematous across the anterolateral surfaces of the tavares. Today there is more apparent difference compared to the right side. It is warm to touch. Although he also does state that his left side is always a little bit more red appearing. Neuro: COMMON NORMALS: patient oriented x3 and moves all extremities SENSORIUM/ORIENTATION: Yes alert Skin: GENERAL SKIN EXAM: erythema (Chronic irregular elongated patches of erythema, scaling skin, extending along bilateral shins anteriorly, few areas of induration. Per patient this is not new. No discharge. Few similar in appearance papular lesions on lower legs which appear to be unroofed with tiny ulceration in the center, without any drainage, about a centimeter or less in size, without any fluctuance to suggest underlying abscess.) OTHER: Small irregularly-shaped reddish patch on lateral left ankle which he says is more new. Today is less apparent. It is flat, no underlying swelling or fluctuance, nontender, no oozing or drainage. Few areas of dry scaly skin. Lower legs are warm to touch. Discharge Data Data Completed and Pending: Completed Studies During Hospitalization Category Date Time Status CT kidney stone [id number] Urgent Cat Scan 11/04/19 18:23 Completed XR chest 1V anu ble [id number] Stat Exams 11/04/19 13:32 Completed Pending at discharge Category Date Time Status Blood Culture Sta t Lab 11/04/19 13:48 Results Complete Blood Co unt w/Auto AM LABS Lab 11/07/19 04:00 Ordered Complete Blood Co unt w/Auto AM LABS Lab 11/08/19 04:00 Ordered Comprehensive Met abolic Panel AM LA BS Lab 11/07/19 04:00 Ordered Comprehensive Met abolic Panel AM LA BS Lab 11/08/19 04:00 Ordered Labs from last 24 hours 11/06/19 11/06/19 11/06/19 10:29 07:40 06:32 WBC RBC Hgb Hct MCV MCH MCHC RDW Plt Count MPV Neut % (Auto) Lymph % (Auto) [place] % (Auto) Eos % (Auto) Baso % (Auto) Neut # (Auto) Lymph # (Auto) [place] # (Auto) Eos # (Auto) Baso # (Auto) Nucleated RBC % (a uto) Nucleated RBCs # Sodium Potassium Chloride Carbon Dioxide Anion Gap BUN Creatinine GFR Calculation Glucose POC Glucose 383 279 Calculated Osmolal ity Lactate Calcium Total Bilirubin AST ALT Alkaline Phosphata se Total Protein Albumin Globulin Vancomycin Trough 5.2 L 11/06/19 11/06/19 11/06/19 05:02 05:02 05:02 WBC 11.3 H RBC 4.89 Hgb 13.8 Hct 43.7 MCV 89.4 MCH 28.2 MCHC 31.6 RDW 14.5 Plt Count 195 MPV 10.7 H Neut % (Auto) 76.4 Lymph % (Auto) 12.9 [place] % (Auto) 7.3 Eos % (Auto) 2.7 Baso % (Auto) 0.3 Neut # (Auto) 8.60 H Lymph # (Auto) 1.5 [place] # (Auto) 0.8 Eos # (Auto) 0.3 Baso # (Auto) 0.0 Nucleated RBC % (a uto) 0 Nucleated RBCs # 0.0 Sodium 135 L Potassium 4.1 Chloride 101 Carbon Dioxide 23 Anion Gap 15.1 BUN 20 Creatinine 1.1 GFR Calculation Not Reportable Glucose 325 H POC Glucose Calculated Osmolal ity 289 Lactate 1.7 Calcium 8.8 Total Bilirubin 0.4 AST 19 ALT 24 Alkaline Phosphata se 69 Total Protein 6.8 Albumin 3.3 L Globulin 3.5 Vancomycin Trough 11/05/19 11/05/19 20:44 17:00 WBC RBC Hgb Hct MCV MCH MCHC RDW Plt Count MPV Neut % (Auto) Lymph % (Auto) [place] % (Auto) Eos % (Auto) Baso % (Auto) Neut # (Auto) Lymph # (Auto) [place] # (Auto) Eos # (Auto) Baso # (Auto) Nucleated RBC % (a uto) Nucleated RBCs # Sodium Potassium Chloride Carbon Dioxide Anion Gap BUN Creatinine GFR Calculation Glucose POC Glucose 327 303 Calculated Osmolal ity Lactate Calcium Total Bilirubin AST ALT Alkaline Phosphata se Total Protein Albumin Globulin Vancomycin Trough Vitals: Last Vital Signs Temp 97.8 F 11/06/19 11:15 Pulse 88 11/06/19 11:15 Resp 18 11/06/19 11:15 BP 158/82 11/06/19 11:15 Pulse Ox 95 11/06/19 11:15 Discharge Plan Discharge Patient Disposition: Home Condition: Stable Prescriptions: New sulfamethoxazole-trimethoprim [Bactrim DS] 800-160 mg tablet 1 tab PO DAILY 5 Days Qty: 10 RF: 0 Continued metoprolol succinate 50 mg tablet extended release 24 hr 50 mg PO DAILY RF: 0 pantoprazole 40 mg tablet,delayed release (DR/EC) 40 mg PO DAILY RF: 0 aspirin [Aspir-81] 81 mg tablet,delayed release (DR/EC) 81 mg PO DAILY RF: 0 triamterene-hydrochlorothiazid 37.5-25 mg capsule 1 cap PO DAILY 90 Days Qty: 90 RF: 3 Eliquis 5 mg Tablet 5 mg PO BID RF: 0 cilostazol 50 mg tablet 50 mg PO BID Qty: 60 RF: 3 Lantus U-100 Insulin 100 unit/mL Solution 100 unit SUBCUT BEDTIME RF: 0 benzonatate 200 mg capsule 200 mg PO TID RF: 0 Mucus Relief 200 mg Tablet 200 mg PO Q4H PRN (Reason: unknown) RF: 0 Humalog Mix 75-25(U-100)Insuln 100 unit/mL (75-25) suspension 110 unit SUBCUT DAILY RF: 0 Discharge Orders: Discharge Order (Routine); Ordered 11/06/19 Ordered By: Ney Estrada Referrals: [facility] Dermatology [Provider Group] - 2 weeks (Chronic rash on shins, DM- Please call patient with an appointment in 2 weeks. [facility] Dermatology [address] [place] [address] Faxed information to clinic ) UROLOGY [facility] [Provider Group] - 12/09/19 10:00 am (Urinary hesitancy, nocturia. You have a appointment with Dr. Araya on December 08 at 10:00am.) Martin Velez, [Primary Care Provider] - 4-7 days (You have an appointment with Dr. Velez on November 12 at 11:00am.) Discharge Diet: Diabetic Discharge Activity: Increase activity as tolerated Activity Restrictions/Additional Instructions: He was given antibiotic for treatment of resolving sepsis with suspected urinary tract infection, but also possibility of cellulitis of left lower leg. Please speak with your primary care doctor to check your renal function at the appointment as the antibiotic you are given can sometimes affect renal function and cause kidney injury. Please discuss with dermatology with regards to chronic rash on your bilateral shins. Please continue follow-up with cardiology with regards to poor circulation in your legs, especially left side. Please discuss with your primary care doctor and furnace stock inspector regarding starting a cholesterol medication once you recover from the current condition. Cholesterol medication would be beneficial for your vascular disease. Continue follow-up with podiatry as previously. If you start feeling unwell, or running a fever, feeling weak, faint, or any other abnormal symptoms, please get seen in the emergency room. Continue monitor your blood glucose, insulin, and optimize control of diabetes with your primary care provider. You are also started on prostate medication due to chronic urinary hesitancy, and having to urinate at night and sometimes can lower your blood pressure especially while standing up. Please monitor your blood pressure 3 times daily, and contact your primary care provider's office if blood pressure becoming low. If it is below 110/70, hold the medication. If it is persistently even lower than that, proceed to ER. You are also referred to urology for additional evaluation of this. Discharge Attestations Time Spent in Discharge Care*: greater than 30 min Quality Metrics Clinical Quality Measures During this hospital stay, did patient experience: None Coding Level of Care Code Acute Construction Carpenters Helper for Richardg Fwd Diagnoses Sepsis A41.9 Complicated UTI (urinary tract infection) N39.0 Urinary hesitancy R39.11 Acute kidney injury superimposed on chronic kidney disease N17.9; N18.9 Lactic acidosis E87.2
[2019-11-06 13:20] VITALS: BP 158/82; PULSE 88; RESP 18; TEMP 36.6; O2SAT 95
--- NOTE | 2019-11-06 14:43 | PC.SOCIAL ---
Allyson from [facility] called to clarify Bactrim DS script. Written for once daily for 5 days with [address] Estrada if this should be BID and he agreed. New order provided by phone for Bactrim DS 1 tab BID for 5 days quantity of 10. Called Allyson back and updated her on verbal order. She reread back to confirm. No further concerns voiced.
== END 2019-11-06 12:30 | disposition home or self-care (01) | DRG 872 ==
LOC: ER 13:07 → MEDSURG 18:44
PROVIDERS: Family Medicine; Admitting Provider Internal Medicine; PCP Family Medicine; Visit Provider Internal Medicine
DX: A41.9 Sepsis, unspecified organism (principal); N17.9 Acute kidney failure, unspecified; N39.0 Urinary tract infection, site not specified; E87.2 Acidosis; N18.9 Chronic kidney disease, unspecified; I25.10 Atherosclerotic heart disease of native coronary artery without angina pectoris; E11.22 Type 2 diabetes mellitus with diabetic chronic kidney disease; Z86.718 Personal history of other venous thrombosis and embolism; Z79.01 Long term (current) use of anticoagulants; I12.9 Hypertensive chronic kidney disease with stage 1 through stage 4 chronic kidney disease, or unspecified chronic kidney disease; Z86.73 Personal history of transient ischemic attack (TIA), and cerebral infarction without residual deficits; Z79.82 Long term (current) use of aspirin; Z20.828 Contact with and (suspected) exposure to other viral communicable diseases; I25.2 Old myocardial infarction; E11.51 Type 2 diabetes mellitus with diabetic peripheral angiopathy without gangrene; Z95.1 Presence of aortocoronary bypass graft; Z96.653 Presence of artificial knee joint, bilateral; Z87.891 Personal history of nicotine dependence; K21.9 Gastro-esophageal reflux disease without esophagitis
CPT/HCPCS: 12345; 36415; 36416; 71045; 74176; 80053; 80202; 81001; 82550; 82962; 83605; 83690; 85025; 85651; 86140; 87040; 87086; 87186; 87426; 96372; 99283; J0696; J0743; J1815 ×2; J3370; J7030; J7040; J7050

== ENCOUNTER 2019-11-23 16:41 | Outpatient (CLI) | payer MEDICARE, SELFPAY | END 2019-11-23 16:42 | disposition home or self-care (01) | LOC: SPT 16:42 | PROVIDERS: PCP Family Medicine; Visit Provider Podiatrist Foot & Ankle Surgery | DX: Z47.89 Encounter for other orthopedic aftercare (principal); S91.302D Unspecified open wound, left foot, subsequent encounter; X58.XXXD Exposure to other specified factors, subsequent encounter | CPT/HCPCS: 97760; L4361 ==

== ENCOUNTER → 2019-12-09 10:58 | Outpatient (BNVA) | payer MEDICARE, SELFPAY | PROVIDERS: PCP Family Medicine; Visit Provider Urology | DX: N39.0 Urinary tract infection, site not specified (principal); R39.11 Hesitancy of micturition | CPT/HCPCS: 81001 ==

== ENCOUNTER 2020-01-10 05:24 | Emergency (ER) | payer MEDICARE, SELFPAY ==
[2020-01-10] VITALS (24 sets, daily range): BP systolic 115–147; BP diastolic 59–83; PULSE 69–88; RESP 13–24; TEMP 36.9; O2SAT 87–97; BMI 34.0
--- NOTE | 2020-01-10 05:29 | ED_ITS ---
HPI - Chest Pain General: Chief Complaint: Chest Pain Stated Complaint: Resolved CP, Frequent PVCs Time Seen by Provider: 01/10/20 05:28 Source: patient and EMS Mode of arrival: EMS Limitations: no limitations History of Present Illness: HPI narrative: 79-year-old male states he started having chest pain last night. He states been a pressure type pain with no radiation. EMS states he had multiple PVCs but after they picked him up his pain is since resolved. Denies any pain currently. He denies any shortness of breath or diaphoresis. Denies any worsening improving factors. MD complaint: chest pain Associated symptoms: Deny abdominal pain, dyspnea, fever(s), nausea or vomiting Review of Systems Const: Denies: fever(s), chills, body aches or change in appetite Eyes: Denies: blurry vision or eye discomfort ENMT: Denies: throat pain or dental pain Card: Reports: chest pain Resp: Denies: dyspnea GI: Denies: abdominal pain, nausea, vomiting or diarrhea : Denies: dysuria Musc: Denies: neck pain or back pain Skin/Breast: Denies: rash Neuro: Denies: headache(s) Psych: Denies: depression [place]/Lymph: Denies: easy bruising All/Imm: Denies: urticaria PFSH ED PFSH: Medical History (Updated 01/10/20 @ 08:16 by Nitza Calderon MD) Anticoagulation adequate with anticoagulant therapy Eliquis Bilateral leg pain CAD (coronary artery disease) Chronic kidney disease (CKD) Claudication Diabetes mellitus DVT (deep venous thrombosis) Bimal filter in place Hypertension Myocardial infarction Peripheral arterial disease Pulmonary embolism TIA (transient ischemic attack) Surgical History History of open heart surgery Hx of total knee arthroplasty bilateral knees S/P CABG (coronary artery bypass graft) Status post percutaneous transluminal angioplasty ([facility]) Right popliteal artery with drug-eluting balloon Family History Family/Other Cancer Heart disease Diabetes Denies family history of CAD (coronary artery disease) Clotting disorder Dementia Hyperlipidemia Psychiatric illness Chronic kidney disease (CKD) Suicide Anesthesia complication Bleeding disorder Family history of premature coronary artery disease Lung disease Hypertension Stroke Social History Smoking and tobacco status: former smoker Second hand smoke exposure: No Smoking risk assessment/counseling performed?: No Alcohol intake: never Desire information about alcohol rehabilitation?: No Counseling given: No Desire information about substance/drug rehabilitation?: No Counseling given: No Adopted: No Caregiver/support person: No Lives independently: Yes Household members: spouse Housing: House Marital status: Number of children: 2 service: No Current occupational status: retired History of recent travel: No Current gender identity: Male Physical Exam Const: COMMON NORMALS: no acute distress, patient oriented x3 and healthy appearing HENMT: COMMON NORMALS: normocephalic and atraumatic HEAD & SCALP: normocephalic and atraumatic Eye: COMMON NORMALS: Equal, round and reactive pupils present and EOMs intact bilaterally PUPIL: Yes Equal, round and reactive pupils present Neck/C-Spine: COMMON NORMALS: full ROM and supple Chest: COMMONS NORMALS: normal inspection of the chest and normal palpation of entire chest wall Resp: COMMON NORMALS: normal respiratory effort, No retractions, No use of accessory muscles and clear to auscultation bilaterally AUSCULTATION: clear to auscultation bilaterally Cardio: COMMON NORMALS: regular rate, regular rhythm and No murmurs present (Cardio) RATE: regular rate RHYTHM: regular rhythm GI: COMMON NORMALS: Normal to inspection, nondistended, normoactive bowel sounds present, Soft to palpation, non-tender and no masses PALPATION: Yes Soft to palpation Extremity: COMMON NORMALS: normal to inspection and full ROM Neuro: COMMON NORMALS: patient oriented x3, moves all extremities and no focal motor deficits Psych: COMMON NORMALS: mental status grossly normal, Normal thought process present and cooperative THOUGHT PROCESS: Normal thought process present Skin: COMMON NORMALS: no rashes or lesions noted and no wounds GENERAL SKIN EXAM: no rashes or lesions noted Course Vital Signs: Vital signs: Vital Signs Temperature 98.5 F 01/10/20 05:25 Pulse Rate 74 01/10/20 08:15 Respiratory Rate 16 01/10/20 08:15 Blood Pressure 124/71 01/10/20 08:15 Pulse Oximetry 95 01/10/20 08:15 MDM - Chest Pain MDM Narrative: Medical decision making narrative: Taras presents here with chest pain. Repeat troponin showed no change and his EKGs here showed no acute abnormalities. Patient has no signs of pulmonary embolism or aortic dissection. I did offer him admission due to age and his symptoms. He states that he lives home alone he has to be at home to take care of things and denies admission. His repeat troponin was negative I informed him he needs to follow-up his PCP and likely have an outpatient stress test and return to the ER if worsening. He understands agrees the plan. Lab Data: Labs: Lab Results 01/10/20 01/10/20 01/10/20 Range/Units 05:30 05:30 05:30 WBC 4.9 (4.0-10.0) 10^3/ uL RBC 5.59 H (4.1-5.3) 10^6/u L Hgb 15.2 (11.7-16.6) g/dL Hct 48.4 (42.0-52.0) % MCV 86.6 (80-94) fL MCH 27.2 L (28.0-34.0) pg MCHC 31.4 (30.0-36.0) g/dL RDW 15.0 (12.1-15.1) % Plt Count 168 (130-400) 10^3/c mm MPV 10.1 (7.4-10.4) fL Neut % (Auto) 57.8 % Lymph % (Auto) 22.5 % [place] % (Auto) 14.2 % Eos % (Auto) 4.7 % Baso % (Auto) 0.4 % Neut # (Auto) 2.80 (1.8-7.7) 10^3/u L Lymph # (Auto) 1.1 (0.8-4.8) 10^3/u L [place] # (Auto) 0.7 (0.2-0.9) 10^3/u L Eos # (Auto) 0.2 (0.0-0.8) 10^3/u L Baso # (Auto) 0.0 (0.0-0.1) 10^3/u L Nucleated RBC % (a uto) 0 % Nucleated RBCs # 0.0 /100WBC Sodium 136 (136-145) mmol/L Potassium 4.3 (3.5-5.1) mmol/L Chloride 98 (98-107) mmol/L Carbon Dioxide 29 (22-29) mmol/L Anion Gap 13.3 (5-19) BUN 17 (8-23) mg/dL Creatinine 1.2 (0.7-1.2) mg/dL GFR Calculation Not Reportable Glucose 113 (65-115) mg/dL POC Glucose (70-110) mg/dL Calculated Osmolal ity 284 L (285-295) mOsm/k g Calcium 8.8 (8.5-10.5) mg/dL Total Bilirubin 0.3 (0.15-1.2) mg/dL AST 43 H (0-40) U/L ALT 47 H (0-41) U/L Alkaline Phosphata se 70 (40-130) IU/L Troponin T Baselin e 32 H (0-15) ng/L Troponin T 120 Min [place] (0-15) ng/L Delta Troponin T (0-10) ABS# Total Protein 6.6 (6.6-8.7) g/dL Albumin 4.1 (3.5-5.2) g/dL Globulin 2.5 (1.3-4.6) g/dL 01/10/20 01/10/20 Range/Units 07:05 07:32 WBC (4.0-10.0) 10^3/ uL RBC (4.1-5.3) 10^6/u L Hgb (11.7-16.6) g/dL Hct (42.0-52.0) % MCV (80-94) fL MCH (28.0-34.0) pg MCHC (30.0-36.0) g/dL RDW (12.1-15.1) % Plt Count (130-400) 10^3/c mm MPV (7.4-10.4) fL Neut % (Auto) % Lymph % (Auto) % [place] % (Auto) % Eos % (Auto) % Baso % (Auto) % Neut # (Auto) (1.8-7.7) 10^3/u L Lymph # (Auto) (0.8-4.8) 10^3/u L [place] # (Auto) (0.2-0.9) 10^3/u L Eos # (Auto) (0.0-0.8) 10^3/u L Baso # (Auto) (0.0-0.1) 10^3/u L Nucleated RBC % (a uto) % Nucleated RBCs # /100WBC Sodium (136-145) mmol/L Potassium (3.5-5.1) mmol/L Chloride (98-107) mmol/L Carbon Dioxide (22-29) mmol/L Anion Gap (5-19) BUN (8-23) mg/dL Creatinine (0.7-1.2) mg/dL GFR Calculation Glucose (65-115) mg/dL POC Glucose 116 (70-110) mg/dL Calculated Osmolal ity (285-295) mOsm/k g Calcium (8.5-10.5) mg/dL Total Bilirubin (0.15-1.2) mg/dL AST (0-40) U/L ALT (0-41) U/L Alkaline Phosphata se (40-130) IU/L Troponin T Baselin e (0-15) ng/L Troponin T 120 Min [place] 30.91 H (0-15) ng/L Delta Troponin T -1.09 L (0-10) ABS# Total Protein (6.6-8.7) g/dL Albumin (3.5-5.2) g/dL Globulin (1.3-4.6) g/dL Imaging Data^: CXR: Radiologist's impression: [address] [id number] XRay Report Signed Patient: Taras Gonzalez Unit #: [id number] : 1940 Acct#:O [id number] Age/Sex: 79 / M ADM Date: 01/10/20 Loc: ER Room/Bed: Attending Dr: Ordering Provider/Ordering MD: Nitza Calderon MD Date of Service: 01/10/20 Procedure(s): XR chest 1V portable [id number] Accession Number(s): [id number] Report Number: [id number] PROCEDURE INFORMATION: Exam: XR Chest, 1 View Exam date and time: 01/10/2020 5:37 AM Age: 79 years old Clinical indication: Chest pain; Type not specified; Prior surgery; Surgery type: Cabg, stents; Additional info: Cp TECHNIQUE: Imaging protocol: XR of the chest Views: 1 view. COMPARISON: CR XR chest 1V portable [id number] 11/04/2019 2:07 PM FINDINGS: Lungs: There is bilateral bronchiectasis. There are strandy and linear opacities present in the lower hemithoraces bilaterally likely representing chronic parenchymal pleural scarring or atelectasis. Pleural space: Unremarkable. No pleural effusion. No pneumothorax. Heart/Mediastinum: Unremarkable. No cardiomegaly. Bones/joints: Unremarkable. XR/XR chest 1V portable [id number] IMPRESSION: 1. There are no acute chest findings. 2. Probable bilateral bronchiectasis and parenchymal and pleural scarring versus atelectasis. EKG Data^: EKG 1: Attestation: I personally reviewed and interpreted this EKG as follows: EKG interpretation date: 01/10/20 EKG interpretation time: 05:34 Interpretation: nsr hr [address] or t wave abnormalities qrs 134 qtc 414 EKG 2: Attestation: I personally reviewed and interpreted this EKG as follows: EKG interpretation date: 01/10/20 EKG interpretation time: 08:12 Interpretation: nsr hr [address] or t wave abnormalities qrs 131 qtc 430 Discharge Plan Discharge Patient Disposition: Home Clinical Impression: Chest pain Qualifiers: Chest pain type: unspecified Qualified Code(s): R07.9 - Chest pain, unspecified Condition: Stable Prescriptions: No Action atorvastatin 40 mg tablet 40 mg PO DAILY Qty: 90 RF: 3 metoprolol succinate 50 mg tablet extended release 24 hr 50 mg PO DAILY RF: 0 pantoprazole 40 mg tablet,delayed release (DR/EC) 40 mg PO DAILY RF: 0 aspirin [Aspir-81] 81 mg tablet,delayed release (DR/EC) 81 mg PO DAILY RF: 0 triamterene-hydrochlorothiazid 37.5-25 mg capsule 1 cap PO DAILY 90 Days Qty: 90 RF: 3 cilostazol 50 mg tablet 50 mg PO BID Qty: 180 RF: 3 mupirocin 2 % ointment 1 applic TOPICAL BID Qty: 22 RF: 0 Eliquis 5 mg Tablet 5 mg PO BID RF: 0 Lantus U-100 Insulin 100 unit/mL Solution 100 unit SUBCUT BEDTIME RF: 0 Mucus Relief 200 mg Tablet 200 mg PO Q4H PRN (Reason: unknown) RF: 0 Humalog Mix 75-25(U-100)Insuln 100 unit/mL (75-25) suspension 110 unit SUBCUT DAILY RF: 0 Discharge Orders: Discharge Order (Routine); Ordered 01/10/20 Ordered By: Nitza Calderon Referrals: Martin Velez DO [Primary Care Provider] - 1-3 days Discharge Diet: Advance as tolerated Discharge Activity: Resume usual activity Patient Instructions: Chest Pain (ED) Coding Level of Care Code ED Provider Contracting Consultant for Chg Fwd Exam Comprehensive
--- NOTE | 2020-01-10 05:29 | ECG_ITS ---
[facility] Test Date: 2020-01-10 Pat Name: Taras Gonzalez Department: Room: Gender: Male V Belt Skiver: : 1940 Requested By: Nitza Calderon Order Number: [id number] Ellen MD: Miley Siu M.D. Measurements Intervals [place] Rate: 73 P: 61 [place]: 209 QRS: 82 QRSD: 134 T: 77 QT: 389 QTc: 429 Interpretive Statements SINUS RHYTHM WITH OCCASIONAL VENTRICULAR PREMATURE COMPLEXES INDETERMINATE AXIS INTRAVENTRICULAR CONDUCTION DELAY [130+ ms QRS DURATION] No previous ECG available for comparison Electronically Signed On 01-10-2020 21:12:30 [employer] GROUND [employer]ONE by Miley Siu M.D. [id number]
[2020-01-10 05:42] LABS: Basophils % 0.4 %; Eosinophils # 0.2 10^3/uL (0.0-0.8); Eosinophils % 4.7 %; Hematocrit 48.4 % (42.0-52.0); Hemoglobin 15.2 g/dL (11.7-16.6); Lymphocytes # 1.1 10^3/uL (0.8-4.8); Lymphocytes % 22.5 %; Mean Corpuscular HGB Conc 31.4 g/dL (30.0-36.0); Mean Corpuscular Hemoglobin 27.2 pg (28.0-34.0); Mean Corpuscular Volume 86.6 fL (80-94); Mean Platelet Volume 10.1 fL (7.4-10.4); Monocytes # 0.7 10^3/uL (0.2-0.9); Monocytes % 14.2 %; Neutrophils % 57.8 %; Nucleated Red Blood Cells % 0 %; Platelet Count 168 10^3/cmm (130-400); Red Blood Count 5.59 10^6/uL (4.1-5.3); White Blood Count 4.9 10^3/uL (4.0-10.0)
[2020-01-10 06:01] LABS: Alanine Aminotransferase 47 U/L (0-41); Albumin Level 4.1 g/dL (3.5-5.2); Alkaline Phosphatase 70 IU/L (40-130); Aspartate Amino Transferase 43 U/L (0-40); Blood Urea Nitrogen 17 mg/dL (8-23); Calcium 8.8 mg/dL (8.5-10.5); Carbon Dioxide 29 mmol/L (22-29); Chloride 98 mmol/L (98-107); Globulin 2.5 g/dL (1.3-4.6); Glucose 113 mg/dL (65-115); Osmolality Calculated 284 mOsm/kg (285-295); Sodium 136 mmol/L (136-145); Total Bilirubin 0.3 mg/dL (0.15-1.2); Total Protein 6.6 g/dL (6.6-8.7)
[2020-01-10 06:04] LABS: Troponin(5th) Baseline 32 ng/L (0-15)
[2020-01-10 06:08] LABS: Anion Gap 13.3 (5-19); Potassium 4.3 mmol/L (3.5-5.1)
--- NOTE | 2020-01-10 07:29 | ECG_ITS ---
[facility] Test Date: 2020-01-10 Pat Name: Taras Gonzalez Department: Room: Gender: Male Manufacturing Sr Engineer: : [id number] Requested By: Nitza Calderon Order Number: [id number] Ellen MD: Miley Siu M.D. Measurements Intervals [place] Rate: 75 P: 16 SD: 189 QRS: 80 QRSD: 131 T: 90 QT: 401 QTc: 449 Interpretive Statements SINUS RHYTHM WITH OCCASIONAL VENTRICULAR PREMATURE COMPLEXES INDETERMINATE AXIS INTRAVENTRICULAR CONDUCTION DELAY [130+ ms QRS DURATION] Compared to ECG 01/10/2020 05:34:10 No significant changes Electronically Signed On 01-10-2020 21:16:37 PAPER REEL OPERATOR by Miley Siu M.D. [id number]
[2020-01-10 07:36] LABS: Troponin 5 2HR 30.91 ng/L (0-15)
[2020-01-10 07:38] LABS: Glucose Point of Care 116 mg/dL (70-110)
[2020-01-10 07:48] LABS: Troponin 5 2HR Delta -1.09 ABS# (0-10)
[2020-01-12 09:05] LABS: Coronavirus Lab Test PTC Inconclusive
== END 2020-01-10 09:49 | disposition home or self-care (01) ==
PROVIDERS: Emergency Provider Emergency Medicine; PCP Family Medicine
DX: R07.9 Chest pain, unspecified (principal); Z79.82 Long term (current) use of aspirin; Z79.01 Long term (current) use of anticoagulants; Z79.4 Long term (current) use of insulin; I25.10 Atherosclerotic heart disease of native coronary artery without angina pectoris; E11.9 Type 2 diabetes mellitus without complications; I10 Essential (primary) hypertension; I25.2 Old myocardial infarction; Z86.73 Personal history of transient ischemic attack (TIA), and cerebral infarction without residual deficits; Z95.1 Presence of aortocoronary bypass graft; Z87.891 Personal history of nicotine dependence
CPT/HCPCS: 12345; 36416; 71045; 80053; 82962; 84484; 85025; 87635; 93005; 99283

== ENCOUNTER → 2020-01-12 14:03 | Outpatient (BNVA) | payer MEDICARE, SELFPAY | PROVIDERS: PCP Family Medicine; Visit Provider Family Medicine | DX: Z20.828 Contact with and (suspected) exposure to other viral communicable diseases (principal) | CPT/HCPCS: 87635 ==